=== PATIENT | male | born 1975 | race Caucasian/White ===

== ENCOUNTER 2020-01-15 22:31 | Inpatient (IN) | payer MEDICARE, MEDICAID ==
[~2020-01-15] VITALS: Ht 182.9 cm; Wt 81.5 kg
--- NOTE | ~2020-01-15 | HEMODYNAMI ---
PATIENT:OSWALD ANTHONY MEDICAL RECORD: [id number] : 75 LOCATION:[facility] D.2117 ADMISSION DATE: 01/16/20 Generatedon:01/17/20207:18 Patient name: OSWALD ANTHONY Patient #: [id number] SSN: [id number] : 1975 Date of study: 01/17/2020 Page: Of Hemodynamic Procedure Report Patient Data Patient Demographics Procedure consent was obtained First Name: OSWALD Gender: Male Last Name: RAJ : 1975 Patient #: [id number] Age: 44 year(s) Race: SSN: [id number] Additional ID: [id number] Contact details [address]: [address] [place] [address] State: [place] City: [place] Zip code: [address] Past Medical History Allergies Allergen Reaction Date Comments Reported Other allergy 01/17/2020 MORPHINE, CODEINE Admission Admission Data Admission Date: 01/16/2020 Admission Time: 16:02 Arrival Date: 01/17/2020 Arrival Time: 0:00 Admit Source: Other Insurance Payor: Medicare Room #: D.2117 [facility] #: [id number] Height (in.): 72 BSA: 2.01 (m2) Height (cm.): 182.88 BMI: 23.65 (kg/m2) Weight (lbs.): 174.36 Weight (kg.): 79.09 Lab Results Lab Result Date: 01/17/2020 Lab Result Time: 0:00 Biochemistry Name Units Result Min Max BUN mg/dl 8 --(*---)-- 7 18 CK-MB ng/ml 1 --(-*--)-- 0 3.6 Creatinine mg/dl 1.2 --(---*)-- 0.6 1.3 eGFR ml/min 70.62301 *-(----)-- 90 120 NONAFRICAN Troponin l ng/ml 0.026 --(-*--)-- 0 0.06 CBC Name Units Result Min Max Hematocrit % 36 *-(----)-- 42 54 Hemoglobin g/dl 12.3 *-(----)-- 13.5 17.5 Procedure Procedure Types Cath Procedure Diagnostic Procedure [facility] w/Coronaries Sedation Charges Moderate Sedation up to 15 minutes Procedure Description Procedure Date Procedure Date: 01/17/2020 Procedure Start Time: 6:58 Procedure End Time: 7:14 Procedure Staff Name Function Grover Bryant MD Performing Physician Patsy Durbin RT Monitor Doug Baron RN Nurse Oswald Braden RT Scrub Procedure Data Cath Procedure Fluoroscopy Diagnostic fluoroscopy Total fluoroscopy Time: 2.1 time: 2.1 min min Diagnostic fluoroscopy Total fluoroscopy dose: 543 dose: 543 mGy mGy Contrast Material Contrast Material Type Amount (ml) Isovue 370 52 Entry Location Entry Primary Successful Side Size Upsize Upsize Entry Closure Regalado ccessful Closure Location (Fr) 1 (Fr) 2 (Fr) Remarks Device Remarks Radial Right 6 Fr Mechanical artery Short Compression Estimated blood loss: 5 ml Diagnostic catheters Device Type Used For End Catheter Placement DIAGNOSTIC Jamie 110cm Procedure 5Fr catheter ([id number]) Procedure Complications No complications Procedure Medications Medication Administration Route Dosage 0.9% NaCl I.V. 100 ml/hr Oxygen etCO2 Nasal cannula 2 l/min Heparin Flush Bag added to field 2 bags (1000units/500ml NS) Lidocaine 2% added to field 20 Radial Cocktail added to field 1 syringe (Verapamil 2mg/Nitro 400mcg/Heparin 1500units) Versed I.V. 2 mg Fentanyl I.V. 100 mcg Radial Cocktail I.A. 1 syringe (Verapamil 2mg/Nitro 400mcg/Heparin 1500units) Hemodynamics Rest BSA: 2.01 (m2) HGB: 12.3 (g/dl) O2 Consumption: Estimated: 244.23 (ml/min) O2 Co nsumption indexed: Estimated:121.51 (ml/min/m) Heart Rate: 71 (bpm) Pressure Samples Time Site Value (mmHg) Purpose Heart Use Rate(bpm) 7:03 LV 130/52,60 Snapshot 85 Gradients Valve Time Site Site Mean SEP/DFP Peak To Heart Use 1 2 (mmHg) (sec/min) Peak Rate (mmHg) (bpm) Aortic 7:04 LV AO 80 Snapshots Pre Cath Intra NCS Post Cath Vital Signs Time Heart Resp SPO2 etCO2 NIBP (mmHg) Rhythm Pain Sedation Rate (ipm) (%) (mmHg) Status Level (bpm) 6:47:05 79 20 100 29.8 136/87(110) NSR 0 (11) 10(A) , No pain 6:51:19 80 17 98 34.3 130/80(98) NSR 0 (11) 10(A) , No pain 6:55:33 81 17 97 34.3 121/80(94) NSR 0 (11) 10(A) , No pain 6:59:43 79 15 97 36.5 120/78(92) NSR 0 (11) 10(A) , No pain 7:03:47 82 14 96 35.8 103/64(79) NSR 0 (11) 10(A) , No pain 7:07:55 81 16 96 35 110/69(87) NSR 0 (11) 9(A) , No pain 7:12:04 81 13 96 38 115/72(86) NSR 0 (11) 9(A) , No pain Medications Time Medication Route Dose Verified Delivered Reason Notes Effectiveness by by 6:49:36 0.9% NaCl I.V. 100 Doug Doug Per ml/hr Tod Baron physician RN RN 6:49:46 Oxygen etCO2 2 l/min Doug Doug for low 02 Nasal Lorigan Lorigan sats cannula RN RN 6:49:58 Heparin Flush added 2 bags Doug Doug used for Bag to Lorigan Tod procedure (1000units/500ml [facility] RN RN NS) 6:50:10 Lidocaine 2% added 20ml Doug Doug for local to vial Lorigan Lorigan anesthetic field RN RN 6:50:31 Radial Cocktail added 1 Doug Doug used for (Verapamil to syringe Lorigan Lorigan procedure 2mg/Nitro field RN RN 400mcg/Heparin 1500units) 6:53:50 Versed I.V. 2 mg Doug Doug for sedation Tod Baron RN RN 6:53:58 Fentanyl I.V. 100 mcg Doug Doug for sedation Tod Baron RN RN 7:02:21 Radial Cocktail I.A. 1 Doug Grover for (Verapamil syringe Tod Bryant MD vasodilation 2mg/Nitro RN 400mcg/Heparin 1500units) Procedure Log Time Note 6:29:17 Informed consent obtained and on chart 6:30:12 Lab Result : BUN 8 mg/dl 6:30:12 Lab Result : Creatinine 1.2 mg/dl 6:30:12 Lab Result : CK-MB 1 ng/ml 6:30:12 Lab Result : Troponin l 0.026 ng/ml 6:30:12 Lab Result : eGFR NONAFRICAN 70.82045 ml/min 6:30:12 Lab Result : Hemoglobin 12.3 g/dl 6:30:12 Lab Result : Hematocrit 36 % 6:30:23 Diagnostic Cath Status : Urgent 6:30:39 Arrival Date: 01/17/2020 12:00:00 AM 6:30:40 Admit Source: Other 6:30:48 Insurance Payor : Medicare 6:31:00 Patient Height : 72 inches 6:31:04 Patient Weight : 174.36 lbs 6:31:45 Procedure Status Urgent Heart Cath (IP). 6:31:47 Oswald ELI(R) (CV) sent for patient. Start room use. 6:31:54 Time tracking: Regular hours (M-F 7:00 - 5:00) 6:32:00 Plan of Care:Hemodynamics will remain stable., Cardiac rhythm will remain stable., Comfort level will be maintained., Respiratory function will remain adequate., Patient/ family verbilizes understanding of procedure., Procedure tolerated without complication., Recovers from procedure without complications.. 6:32:43 H&P Date Dictated: 01/16/2020 Within 30 days and on chart.. 6:32:44 Pre-procedure instructions explained to patient. 6:32:45 Pre-op teaching completed and patient verbalized understanding. 6:32:47 Family unavailable. 6:32:48 Patient NPO since Midnight. 6:33:02 Patient allergic to Other allergyMORPHINE, CODEINE 6:33:11 Lab results completed and on chart. 6:33:15 Stress Test: no; N/A ? 6:33:18 Alarms reviewed by R. N. 6:33:18 Sharps counted by scrub and verified by R.N. 6:40:13 Patient received from Med II to CCL 1 Alert and oriented. Tansferred to table in Supine position. 6:40:14 Warm blankets applied, and nav hugger turned on for patient comfort. 6:40:15 Correct patient and procedure confirmed by team. 6:40:15 ECG and BP/O2 sat monitors applied to patient. 6:40:22 Is the patient allergic to Iodine/contrast media? No. 6:43:34 Was the patient premedicated? Yes 6:43:38 Is patient on blood thinner?No 6:43:42 Patient diabetic? Yes. 6:43:44 If diabetic: On Metformin? No 6:43:46 ----Pre-sedation anethsthesia assessment.---- 6:43:50 Previous problem with sedation/anesthesia? No ? 6:43:51 Snore? Yes 6:43:56 Sleep apnea? No 6:43:58 Deviated septum? No 6:43:59 Opens mouth fully? Yes 6:44:00 Sticks out tongue? Yes 6:45:11 Airway obstruction? No ? 6:45:13 Dentures? No ? 6:45:16 Pre procedure: right dorsailis pedis pulse 2+ Normal; easily identifiable; not easily obliterated 6:45:19 Modified Ulisses's test Ulnar < 7 seconds 6:45:21 Patient pain scale 0/10 ?. 6:45:27 IV patent on arrival in left antecubital with 0.9% NaCl at O. 6:45:33 Right Radial & Right Groin area was prepped with chlora-prep and draped in sterile fashion 6:45:42 Use device set Radial Dx or PCI 6:45:43 ACIST Syringe (70726) opened to sterile field. 6:45:44 Medline Cath Pack ([id number]) opened to sterile field. 6:45:44 Bag Decanter (2002) opened to sterile field. 6:45:45 ACIST Hand Control (57338) opened to sterile field. 6:45:46 ACIST Manifold (46963) opened to sterile field. 6:45:47 MBrace Wrist Support ([id number]) opened to sterile field. 6:45:48 NEEDLE Cook 21G 4cm Radial ([id number]) opened to sterile field. 6:45:49 EMERALD Guide Wire (502-715) opened to sterile field. 6:45:50 SHEATH 6FR RAIN ([id number]) opened to sterile field. 6:46:02 Full Disclosure recording started 6:46:03 Vital chart was started 6:46:05 Baseline sample Acquired. 6:46:08 Rhythm: sinus rhythm 6:49:36 0.9% NaCl 100 ml/hr I.V. was administered by Doug Baron RN; Per physician; Verbal order read back and verified. 6:49:46 Oxygen 2 l/min etCO2 Nasal cannula was administered by Doug Baron RN; for low 02 sats; Verbal order read back and verified. 6:49:58 Heparin Flush Bag (1000units/500ml NS) 2 bags added to field was administered by Doug Baron RN; used for procedure; Verbal order read back and verified. 6:50:10 Lidocaine 2% 20ml vial added to field was administered by Doug Baron RN; for local anesthetic; Verbal order read back and verified. 6:50:31 Radial Cocktail (Verapamil 2mg/Nitro 400mcg/Heparin 1500units) 1 syringe added to field was administered by Doug Baron RN; used for procedure; Verbal order read back and verified. 6:52:46 --------ALL STOP TIME OUT------ 6:52:47 Final Timeout: patient, procedure, and site verified with staff and physician. All members of the team are in agreement. 6:52:49 Right Radial & Right Groin site verified by team. 6:52:53 Fire Safety Assessment: A--An alcohol-based skin anteseptic being used preoperatively., C--Open oxygen or nitrous oxide is being used., D--An ESU, laser, or fiber-optic light is being used. 6:52:56 Physical assessment completed. ASA score P 2 - A patient with mild systemic disease as per Grover Bryant MD. 6:52:59 2) 60-89 Mildly reduced kidney function, and other findings (as for stage 1) point to kidney disease. 6:53:03 Maximum allowable contrast dose (3.7 X eGFR X 0.75)194 ml. 6:53:07 Sedation plan: IV Moderate Sedation Medication:Versed, Fentanyl 6:53:50 Versed 2 mg I.V. was administered by Doug Baron RN; for sedation; Verbal order read back and verified. 6:53:58 Fentanyl 100 mcg I.V. was administered by Doug Baron RN; for sedation; Verbal order read back and verified. 6:58:01 Procedure started. 6:58:20 Local anesthetic to right radial artery with Lidocaine 2% by Grover Bryant MD.INITIAL ACCESS ONLY 6:58:34 Zero performed for pressure channel P1 7:00:34 A 6 Fr Short sheath was inserted into the Right Radial artery 7:02:08 A DIAGNOSTIC Jamie 110cm 5Fr catheter ([id number]) was advanced over the wire and used for Procedure. 7:02:21 Radial Cocktail (Verapamil 2mg/Nitro 400mcg/Heparin 1500units) 1 syringe I.A. was administered by Grover Bryant MD; for vasodilation; Verbal order read back and verified. 7:03:24 LV gram done using ANDREWS 7:03:39 LV hemodynamics recorded. 7:03:42 Injector settings: Ml/sec: 5, Volume: 15, 7:04:19 EF : 20 % 7:05:19 LCA angiography performed. 7:05:24 Injector settings: Ml/sec: 3, Volume: 6, 7:07:14 RCA angiography performed. 7:07:17 Injector settings: Ml/sec: 3, Volume: 6, 7:07:23 ACCDominant side:Left 7:11:30 ZEPHYR REGULAR TR BAND ([id number]) opened to sterile field. 7:11:39 Sheath removed intact; hemostasis achieved with Mechanical Compression to the Right Radial artery. 7:11:41 Procedure ended.(Physican Out) 7:11:49 Fluoroscopy time 02.10 minutes. 7:11:54 Fluoroscopy dose: 543 mGy 7:11:54 Flurop Dose total: 543 7:12:02 Dose Area Product 53691 mGy/cm. 7:12:08 Contrast amount:Isovue 370 52ml. 7:12:12 Maximum allowable dose exceeded? No. 7:12:13 Sharps counted by scrub and verified by R.N. 7:12:20 Carlton band inflated with 10cc of air. 7:12:23 Post Procedure Pulses reassessed and unchanged 7:12:25 Post procedure: right dorsailis pedis pulse 2+ Normal; easily identifiable; not easily obliterated. 7:12:29 Post-procedure physical assessment completed. ASA score P 2 - A patient with mild systemic disease as per Grover Bryant MD. 7:12:32 Post procedure rhythm: unchanged. 7:12:35 Estimated blood loss: 5 ml 7:12:36 Post procedure instruction explained to patient.Patient verbalizes understanding. 7:12:37 Patient needs reinforcement of post procedure teaching. 7:12:54 Procedure type changed to Cath procedure, Diagnostic procedure, LHC, [facility] w/Coronaries, Sedation Charges, Moderate Sedation up to 15 minutes 7:13:46 Procedure and supply charges have been captured, reviewed, submitted and are correct. 7:13:51 Procedure Complication : No complications 7:13:53 Vital chart was stopped 7:13:56 [facility] Findings: MVD- MD will discuss options w/ pt 7:13:58 Operative report dictated upon procedure completion. 7:13:58 See physician's report for complete and final results. 7:14:00 Report given to Med II. 7:14:04 Patient transfered to Med II with Bed. 7:14:07 Procedure ended. 7:14:07 Full Disclosure recording stopped 7:14:17 End room use (Document Last) 7:14:29 End room use (Document Last) 7:14:55 End room use (Document Last) Device Usage Item Name Manufacture Quantity Catalog Hospital Part Current Minima l Lot# / Number Charge Number Stock Stock Serial# Code ACIST Acist 1 25530 [id number] [id number] [id number] 20 Syringe Medical (56704) Systems Inc Medline Medline 1 [id number] 649641 46462 037710 5 Cath Pack ([id number]) Bag Microtek 1 955502 70904 526477 5 Decanter Medical Inc. () ACIST Hand Acist 1 78997 504243 258660 605936 5 Control Medical (69718) Systems Inc ACIST Acist 1 82546 091694 366148 219866 5 Manifold Medical (94539) Systems Inc MBrace Advanced 1 [id number] 212135 19108 969854 5 Wrist Vascular Support Dynamics ([id number]) NEEDLE Cook Cook Medical 1 [id number] 149043 052801 218259 5 21G 4cm Radial (D87825) EMERALD Cardinal 1 502-455 038810 794681 589512 5 Guide Wire Health (502455) SHEATH 6FR Cardinal 1 [id number] 122071 9110684 342853 5 [facility] (1770034) DIAGNOSTIC Terumo 1 24-6923 125103 330154 908433 5 Jamie 110cm 5Fr catheter (503960) ZEPHYR Cardinal 1 095824 992642 0546121 331720 5 REGULAR TR Health BAND (367762) Signature Audit [place] Stage Time Signature Unsigned Intra-Procedure 01/17/2020 Patsy Durbin 7:14:29 AM RT(R) Intra-Procedure 01/17/2020 Doug 7:14:55 AM Tod PAGAN Intra-Procedure 01/17/2020 Grover Bryant MD 7:18:14 AM [facility] [address] [place] [address]
[~2020-01-15 22:31] MED LIST: BAYER CHEWABLE81 MG PO; LIPITOR10 MG PO; LOSARTAN HCT PO; PLAVIX75 MG PO
[2020-01-15 23:05] LABS: BASOPHILS 0.3 % (0-2); EOSINOPHILS 3.2 % (0-7); HEMATOCRIT 37.8 % (42.0-54.0); HEMOGLOBIN 13.1 g/dL (13.5-17.5); IMMATURE GRANULOCYTES 0.2 % (0-5); LYMPHOCYTES 41.1 % (15-50); MCH 31.6 pg (26.0-34.0); MCHC 34.7 g/dL (31.0-37.0); MCV 91.1 fL (80.0-100.0); MEAN PLATELET VOLUME 8.9 fL (7.4-10.4); MONOCYTES 8.8 % (2-11); NEUTROPHILS 46.4 % (40-80); PLATELET COUNT 389 10x3/uL (130-400); RBC 4.15 10x6/uL (4.20-6.10); WBC 9.5 10x3/uL (4.8-10.8)
[2020-01-15 23:12] LABS: CALC OSMOLALITY 278 mosm/kg (275-300); CALCIUM 8.9 mg/dL (8.5-10.1); CARBON DIOXIDE 27.6 mmol/L (21.0-32.0); CHLORIDE - SERUM 102 mmol/L (98-107); CREATININE - SERUM 1.1 mg/dL (0.6-1.3); GLUCOSE 256 mg/dL (74-106); POTASSIUM - SERUM 3.7 mmol/L (3.5-5.1); SODIUM 136 mmol/L (136-145); UREA NITROGEN 7 mg/dL (7-18); eGFR NON AFRICAN AMERICAN 77 mL/min (90-120)
[2020-01-15 23:16] LABS: APTT 27.2 SECONDS (22.8-39.4); INR 0.99 (0.85-1.17); PROTIME 13.1 SECONDS (11.6-15.0)
[2020-01-15 23:18] LABS: D-DIMER-QUANTITATIVE 0.34 ug/mLFEU (0.20-0.54)
[2020-01-15 23:30] VITALS: BP 153/93
[2020-01-15 23:30] LABS: ALBUMIN 3.3 g/dL (3.4-5.0); ALKALINE PHOSPHATASE 97 U/L (30-120); ALT (SGPT) 25 U/L (10-68); BILIRUBIN - TOTAL 0.24 mg/dL (0.2-1.3); CKMB 1.1 U/L (0.0-3.6); CREATINE KINASE 79 UL (21-232); LIPASE 110 U/L (73-393); MAGNESIUM - SERUM 1.9 mg/dL (1.8-2.4); PRO BNP 185 pg/mL (0-125); PROTEIN - SERUM 7.7 g/dL (6.4-8.2); TROPONIN-I < 0.017 ng/mL (0.000-0.060)
[2020-01-16 00:07] LABS: MAGNESIUM - SERUM 1.9 mg/dL (1.8-2.4); THYROID STIMULATING HORMONE 1.61 uIU/mL (0.36-3.74)
--- NOTE | 2020-01-16 00:23 | NUR ---
PT ARRIVED VIA W/C FROM ER. NO DISTRESS NOTED.
[2020-01-16 00:49] VITALS: BP 122/76; BMI 23.6
--- NOTE | 2020-01-16 01:13 | NUR ---
ADMISSION ASSESSMENT, HISTORY AND HOME MED COMPLETED. PT DENIED ANY DISCOMFORT. IV TO LFA WITH NS AT 75CC/HR. IV PATENT. SR PER CM HR 71. PPM NOTED. VSS. LUNGS ESSENTIALLY CTA. AN. PALPABLE PERIPHERAL PULSES. NUMEROUS CHIGGER BITES NOTED TO BILAT LOWER LEGS. SPOKE AT LENGHT WITH PT ABOUT HIS A1C. PT STATES HE KNOWS HE IS A DIABETIC BUT DOESN'T TAKE ANY MEDS FOR IT. STATES ONLY TAKES HIS ASA 81MG DAILY. AT BEDSIDE. CALL LIGHT WITHIN REACH. NON SLIP SOCKS PLACED ON FEET. EXPLAINED RATIONALE FOR NPO UNTIL SEEN BY CARDIOLOGY. PT STATED UNDERSTANDING.
--- NOTE | 2020-01-16 03:55 | NUR ---
PT RESTING WITH EYES CLOSED. RESP EVEN AND REGULAR. CALL LIGHT WITHIN REACH.
[2020-01-16 04:30] VITALS: BP 121/74
--- NOTE | 2020-01-16 06:31 | NUR ---
VSS THROUGHOUT NIGHT. SR PER CM. PT DENIED ANY DISCOMFORT. NEEDSMET; WILL CONTINUE TO MONITOR.
[2020-01-16 07:21] LABS: CHOL - HDL RATIO 5.6 ratio (2.3-4.9); CHOLESTEROL, TOTAL 140 mg/dL (0-200); CKMB 1.1 U/L (0.0-3.6); CREATINE KINASE 61 UL (21-232); HDL CHOLESTEROL 25 mg/dL (32-96); LDL CHOLESTEROL 93 mg/dL (0-100); LDL-HDL RATIO 3.7 ratio (1.5-3.5); TRIGLYCERIDE 114 mg/dL (30-200); TROPONIN-I < 0.017 ng/mL (0.000-0.060)
[2020-01-16 09:50] LABS: % SATURATION 28 % (15-55); IRON 69 ug/dl (35-150); TOTAL IRON BIND CAPACITY 242 ug/dl (260-445); UNSAT IRON BIND CAPACITY 173 ug/dl (150-375)
[2020-01-16 10:37] VITALS: BP 113/65
[2020-01-16 11:50] LABS: CREATINE KINASE 52 UL (21-232); TROPONIN-I 0.026 ng/mL (0.000-0.060)
--- NOTE | 2020-01-16 12:21 | NUR ---
I have reviewed this patient and I concur with the Shift Assessment completed by the Licensed Practical Nurse today this shift.
[2020-01-16 13:54] LABS: BASOPHILS 0.3 % (0-2); HEMOGLOBIN 12.3 g/dL (13.5-17.5); IMMATURE GRANULOCYTES 0.2 % (0-5); LYMPHOCYTES 27.5 % (15-50); MCH 31.3 pg (26.0-34.0); MCHC 34.2 g/dL (31.0-37.0); MCV 91.6 fL (80.0-100.0); MEAN PLATELET VOLUME 8.9 fL (7.4-10.4); MONOCYTES 6.2 % (2-11); NEUTROPHILS 63.8 % (40-80); PLATELET COUNT 365 10x3/uL (130-400); RBC 3.93 10x6/uL (4.20-6.10); RDW 13.1 % (11.5-14.5)
[2020-01-16 13:55] LABS: WBC 11.9 10x3/uL (4.8-10.8)
[2020-01-16 14:05] LABS: ANION GAP 10.3 mmol/L (8-16); CALCIUM 8.1 mg/dL (8.5-10.1); CARBON DIOXIDE 25.5 mmol/L (21.0-32.0); CHOL - HDL RATIO 5.5 ratio (2.3-4.9); CREATININE - SERUM 1.2 mg/dL (0.6-1.3); LDL-HDL RATIO 3.6 ratio (1.5-3.5); POTASSIUM - SERUM 3.8 mmol/L (3.5-5.1)
[2020-01-16 14:17] VITALS: BP 104/53
[2020-01-16 14:34] LABS: UDS - AMPHET POSITIVE QUAL (NEGATIVE); UDS - BARB NEGATIVE QUAL (NEGATIVE); UDS - BENZO NEGATIVE QUAL (NEGATIVE); UDS - COCAINE NEGATIVE QUAL (NEGATIVE); UDS - OPIATE NEGATIVE QUAL (NEGATIVE); UDS - PCP NEGATIVE QUAL (NEGATIVE); UDS - THC NEGATIVE QUAL (NEGATIVE)
--- NOTE | 2020-01-16 19:34 | NUR ---
PATIENT IS ALERT AND ORIENTED, RESTING COMFORTABLY IN BED. RESPIRATIONS ARE EVEN AND UNLABORED. NO S/S OF DISTRESS. NO C/O PAIN. CALL LIGHT WITHIN REACH. WILL CPOC.
[2020-01-16 20:00] VITALS: BP 153/76
[2020-01-17 06:18] LABS: BASOPHILS 0.3 % (0-2); HEMATOCRIT 34.2 % (42.0-54.0); HEMOGLOBIN 11.8 g/dL (13.5-17.5); IMMATURE GRANULOCYTES 0.2 % (0-5); LYMPHOCYTES 41.1 % (15-50); MCH 31.5 pg (26.0-34.0); MCHC 34.5 g/dL (31.0-37.0); MCV 91.2 fL (80.0-100.0); MEAN PLATELET VOLUME 9.3 fL (7.4-10.4); MONOCYTES 7.4 % (2-11); PLATELET COUNT 405 10x3/uL (130-400); RBC 3.75 10x6/uL (4.20-6.10); RDW 13.2 % (11.5-14.5)
[2020-01-17 06:34] LABS: CALCIUM 8.7 mg/dL (8.5-10.1); CARBON DIOXIDE 25.4 mmol/L (21.0-32.0); CHLORIDE - SERUM 105 mmol/L (98-107); POTASSIUM - SERUM 3.9 mmol/L (3.5-5.1); SODIUM 140 mmol/L (136-145)
[2020-01-17 06:35] LABS: CALC OSMOLALITY 280 mosm/kg (275-300); CREATININE - SERUM 0.8 mg/dL (0.6-1.3); GLUCOSE 151 mg/dL (74-106); UREA NITROGEN 11 mg/dL (7-18); eGFR NON AFRICAN AMERICAN > 90 mL/min (90-120)
--- NOTE | 2020-01-17 07:36 | NUR ---
BACK FROM DIRECTOR OF SUSTAINABILITY PROGRAMS. VS WNL. RIGHT WRIST STABLE WITH Z-BAND INTACT. WILL MONITOR.
[2020-01-17 09:30] VITALS: BP 103/68
--- NOTE | 2020-01-17 10:00 | NUR ---
Z-BAND DCD WITHOUT BLEEING OR HEMATOMA NOTED.
[2020-01-17 11:52] VITALS: BP 94/50
[2020-01-17 13:32] VITALS: Ht 182.9 cm; Wt 81.5 kg
[2020-01-17 17:47] VITALS: BP 116/69
[2020-01-17 19:48] VITALS: BP 111/72
[2020-01-18 00:12] VITALS: BP 121/68
[2020-01-18 04:55] VITALS: BP 119/77
[2020-01-18 06:13] LABS: BASOPHILS 0.2 % (0-2); HEMATOCRIT 37.5 % (42.0-54.0); HEMOGLOBIN 12.7 g/dL (13.5-17.5); IMMATURE GRANULOCYTES 0.1 % (0-5); LYMPHOCYTES 46.6 % (15-50); MCH 31.4 pg (26.0-34.0); MCHC 33.9 g/dL (31.0-37.0); MCV 92.6 fL (80.0-100.0); MEAN PLATELET VOLUME 9.5 fL (7.4-10.4); MONOCYTES 6.8 % (2-11); NEUTROPHILS 44.3 % (40-80); PLATELET COUNT 425 10x3/uL (130-400); RBC 4.05 10x6/uL (4.20-6.10); RDW 13.3 % (11.5-14.5); WBC 10.3 10x3/uL (4.8-10.8)
[2020-01-18 06:34] LABS: CALCIUM 8.6 mg/dL (8.5-10.1); CARBON DIOXIDE 28.1 mmol/L (21.0-32.0); CHLORIDE - SERUM 104 mmol/L (98-107); CREATININE - SERUM 0.9 mg/dL (0.6-1.3); SODIUM 138 mmol/L (136-145); eGFR NON AFRICAN AMERICAN > 90 mL/min (90-120)
[2020-01-18 06:36] LABS: CALC OSMOLALITY 279 mosm/kg (275-300); GLUCOSE 206 mg/dL (74-106); POTASSIUM - SERUM 4.7 mmol/L (3.5-5.1); UREA NITROGEN 8 mg/dL (7-18)
[2020-01-18 07:57] VITALS: BP 136/84
[2020-01-18 09:53] VITALS: BP 136/84
[2020-01-18] MEDS ORDERED: COREG 3.1253.125 MG PO (10:20)
[2020-01-18] MEDS ORDERED: PLAVIX75 MG PO (10:20)
[2020-01-18] MEDS ORDERED: ENTRESTO 24 MG1 EACH PO (10:20)
[2020-01-18] MEDS ORDERED: GLUCOTROL XL 5 M5 MG PO (10:21)
--- NOTE | 2020-01-18 11:26 | NUR ---
Dc paperwork discussed with pt and spouse. FU appts given at DC. PIC dc'd cath tip intact pressure held. Right wrist pulse palpable, pt advised to monitor right wrist and hand r/t cardiac cath 01/16. Pt and spouse report they understand dc instructions and will keep FU appts. Pt with no distress or issues reported.
== END 2020-01-18 12:29 | disposition home or self-care (01) | DRG 287 ==
LOC: D.ER 22:31 → OBSVTIME 23:48 → D.M2 23:48
PROVIDERS: Emergency Medicine; Internal Medicine Cardiovascular Disease; ADMIT Internal Medicine Nephrology; ATTEND Internal Medicine Nephrology
PROC: B2151ZZ Fluoroscopy of Left Heart using Low Osmolar Contrast (ICD-10-PCS; 2020-01-17)
PROC: 4A023N7 Measurement of Cardiac Sampling and Pressure, Left Heart, Percutaneous Approach (ICD-10-PCS; 2020-01-17)
PROC: B2111ZZ Fluoroscopy of Multiple Coronary Arteries using Low Osmolar Contrast (ICD-10-PCS; principal; 2020-01-17 06:31)
DX: I25.110 Atherosclerotic heart disease of native coronary artery with unstable angina pectoris (principal); I50.20 Unspecified systolic (congestive) heart failure; T82.855A Stenosis of coronary artery stent, initial encounter; I11.0 Hypertensive heart disease with heart failure; Y83.9 Surgical procedure, unspecified as the cause of abnormal reaction of the patient, or of later complication, without mention of misadventure at the time of the procedure; I42.9 Cardiomyopathy, unspecified; F15.90 Other stimulant use, unspecified, uncomplicated; D64.9 Anemia, unspecified; E11.9 Type 2 diabetes mellitus without complications

== ENCOUNTER → 2020-02-06 13:07 | Outpatient (CLI) | payer MEDICARE, MEDICAID ==
[2020-01-17 13:32] VITALS: BMI 23.6
[~2020-02-06 13:07] MED LIST changes: +COREG 3.1253.125 MG PO; +ENTRESTO 24 MG1 EACH PO; +GLUCOTROL XL 5 M5 MG PO
== END | disposition home or self-care (01) ==
LOC: D.HCCECHO 02-01 13:00
PROVIDERS: ATTEND Internal Medicine Cardiovascular Disease
DX: I25.10 Atherosclerotic heart disease of native coronary artery without angina pectoris (principal)

== ENCOUNTER 2020-03-02 | Inpatient (IN) | payer MEDICARE, MEDICAID ==
[~2020-03-02] VITALS: Ht 185.4 cm; Wt 93.0 kg
--- NOTE | ~2020-03-02 | HEMODYNAMI ---
PATIENT:GALLO ANTHONY MEDICAL RECORD: [id number] : 75 LOCATION:[address] ADMISSION DATE: 03/02/20 Generatedon:03/03/20209:50 Patient name: GALLO ANTHONY Patient #: [id number] SSN: [id number] : 1975 Date of study: 03/03/2020 Page: Of Hemodynamic Procedure Report Patient Data Patient Demographics Procedure consent was obtained First Name: GALLO Gender: Male Last Name: RAJ : 1975 Middle Initial: J Age: 44 year(s) Patient #: [id number] Race: SSN: [id number] Additional ID: [id number] Contact details [address]: [address] [place] [address] State: [place] City: [place] Zip code: [address] Past Medical History Allergies Allergen Reaction Date Comments Reported Other allergy 01/17/2020 MORPHINE, CODEINE Other allergy 03/03/2020 morphine, codeine Admission Admission Data Admission Date: 03/02/2020 Admission Time: 13:12 Arrival Date: 03/03/2020 Arrival Time: 0:00 Admit Source: Other Insurance Payor: Medicare Room #: D.2121 [facility] #: [id number] Height (in.): 73 BSA: 2.06 (m2) Height (cm.): 185.42 BMI: 23.8 (kg/m2) Weight (lbs.): 180.36 Weight (kg.): 81.81 Lab Results Lab Result Date: 03/03/2020 Lab Result Time: 0:00 Biochemistry Name Units Result Min Max BUN mg/dl 9 --(*---)-- 7 18 CK-MB ng/ml 1.1 --(-*--)-- 0 3.6 Creatinine mg/dl 1 --(--*-)-- 0.6 1.3 eGFR ml/min 85.80673 -*(----)-- 90 120 NONAFRICAN Troponin l ng/ml 0.017 --(-*--)-- 0 0.06 CBC Name Units Result Min Max Hematocrit % 38.7 *-(----)-- 42 54 Hemoglobin g/dl 13.4 -*(----)-- 13.5 17.5 Procedure Procedure Types Cath Procedure Diagnostic Procedure [facility] w/Coronaries FFR/IVUS FFR Initial Sedation Charges Moderate Sedation up to 45 minutes PCI Procedure Hemochron ACT Test Procedure Description Procedure Date Procedure Date: 03/03/2020 Procedure Start Time: 9:00 Procedure End Time: 9:48 Procedure Staff Name Function Grover Bryant MD Performing Physician Rufina Curtis RN Nurse Patsy Durbin RT Monitor Jacki Deshpande RT Scrub Procedure Data Cath Procedure Fluoroscopy Diagnostic fluoroscopy Total fluoroscopy Time: 6.1 time: 6.1 min min Diagnostic fluoroscopy Total fluoroscopy dose: 752 dose: 752 mGy mGy Contrast Material Contrast Material Type Amount (ml) Isovue 370 106 Entry Location Entry Primary Successful Side Size Upsize Upsize Entry Closure Succes sful Closure Location (Fr) 1 (Fr) 2 (Fr) Remarks Device Remarks Femoral Left 5 Fr Exoseal artery Estimated blood loss: 10 ml Diagnostic catheters Device Type Used For End Catheter Placement MULTIPACK JL 4.0 5Fr Procedure catheter MULTIPACK 3DRC 5Fr Procedure catheter MULTIPACK Pigtail 5 Fr Procedure catheter DIAGNOSTIC IM 5Fr Procedure catheter ([id number]) Procedure Complications No complications Procedure Medications Medication Administration Route Dosage Oxygen etCO2 Nasal cannula 2 l/min Lidocaine 2% added to field 20 Heparin Flush Bag added to field 2 bags (1000units/500ml NS) 0.9% NaCl I.V. 100 ml/hr Versed I.V. 2 mg Fentanyl I.V. 100 mcg Radial Cocktail added to field 1 syringe (Verapamil 2mg/Nitro 400mcg/Heparin 1500units) Versed I.V. 1 mg Fentanyl I.V. 50 mcg Versed I.V. 1 mg Fentanyl I.V. 50 mcg Heparin Bolus I.V. 3000 units Hemodynamics Rest BSA: 2.06 (m2) HGB: 13.4 (g/dl) O2 Consumption: Estimated: 249.3 (ml/min) O2 Con sumption indexed: Estimated:121.02 (ml/min/m) Heart Rate: 70 (bpm) Pressure Samples Time Site Value (mmHg) Purpose Heart Use Rate(bpm) 9:23 LV 115/48,62 Snapshot 70 9:25 AO 113/74(91) Pullback 70 9:25 LV 112/20,33 Pullback 70 Gradients Valve Time Site 1 Site 2 Mean SEP/DFP Peak To Heart Use (mmHg) (sec/min) Peak Rate (mmHg) (bpm) Aortic 9:25 LV AO 0 5 0 70 112/20,33 113/74(91) Calculations Valve P-P Mean Valve Index Valve Source Name Gradient Area Flow (cm2) Aortic 0 0 0 0 Snapshots Pre Cath Intra NCS Post Cath Vital Signs Time Heart Resp SPO2 etCO2 NIBP Rhythm Pain Sedation Rate (ipm) (%) (mmHg) (mmHg) Status Level (bpm) 8:43:42 70 14 98 0 113/71(85) NSR 0 (11) 10(A) , No pain 8:47:50 69 19 98 0 117/69(86) NSR 0 (11) 10(A) , No pain 8:52:00 69 15 99 32.2 109/67(83) NSR 0 (11) 10(A) , No pain 8:56:08 69 18 98 34.4 107/64(76) NSR 0 (11) 10(A) , No pain 9:00:15 69 15 99 38.2 102/62(72) NSR 0 (11) 10(A) , No pain 9:04:21 69 14 99 39 93/61(71) NSR 0 (11) 9(A) , No pain 9:08:25 69 13 99 39 95/54(68) NSR 0 (11) 9(A) , No pain 9:12:29 69 14 98 39 92/58(74) NSR 0 (11) 9(A) , No pain 9:16:33 69 14 98 37.5 89/55(75) NSR 0 (11) 9(A) , No pain 9:20:34 69 13 98 40.5 91/59(73) NSR 0 (11) 9(A) , No pain 9:24:38 69 12 98 40.5 92/58(69) NSR 0 (11) 9(A) , No pain 9:28:40 70 15 98 39 97/62(74) NSR 0 (11) 9(A) , No pain 9:32:45 69 13 99 39.7 86/53(69) NSR 0 (11) 10(A) , No pain 9:36:47 69 13 98 38.9 90/58(78) NSR 0 (11) 10(A) , No pain 9:40:49 69 13 98 38.9 92/57(74) NSR 0 (11) 10(A) , No pain 9:44:48 69 13 98 38.3 103/64(82) NSR 0 (11) 10(A) , No pain 9:48:52 69 15 99 35.9 111/66(83) NSR 0 (11) 10(A) , No pain Medications Time Medication Route Dose Verified Delivered Reason Note s Effectiveness by by 8:42:39 Oxygen etCO2 2 l/min Grover Buffie used for Nasal Manny Curtis RN procedure cannula 8:42:51 Lidocaine 2% added 20ml Grover Grover for local to vial Manny Bryant MD anesthetic field 8:42:59 Heparin Flush added 2 bags Grover Grover used for Bag to Manny Bryant MD procedure (1000units/500ml field NS) 8:43:10 0.9% NaCl I.V. 100 Grover Buffie Per physician ml/hr Manny Curtis RN 8:56:45 Versed I.V. 2 mg Grover Buffie for sedation Manny Curtis RN 8:56:56 Fentanyl I.V. 100 mcg Grover Buffie for sedation Manny Curtis RN 8:57:16 Radial Cocktail added 1 Grover Grover for (Verapamil to syringe Manny Bryant MD vasodilation 2mg/Nitro field 400mcg/Heparin 1500units) 9:00:31 Versed I.V. 1 mg Grover Grover for sedation Manny Bryant MD 9:00:35 Fentanyl I.V. 50 mcg Grover Grover for sedation Manny Bryant MD 9:05:54 Versed I.V. 1 mg Grover Grover for sedation Manny Bryant MD 9:11:11 Fentanyl I.V. 50 mcg Grover Grover for sedation Manny Bryant MD 9:27:06 Heparin Bolus I.V. 3000 Grover Buffie for veri fied units Manny Curtis RN anticoagulation with dr bryant for ifr Procedure Log Time Note 8:18:05 Informed consent obtained and on chart 8:18:12 Arrival Date: 03/03/2020 12:00:00 AM 8:18:12 Admit Source: Other 8:18:38 Insurance Payor : Medicare 8:20:47 Patient Height : 73 inches 8:20:52 Patient Weight : 180.36 lbs 8:22:22 Diagnostic Cath Status : Urgent 8::43 Lab Result : Creatinine 1 mg/dl 8::43 Lab Result : BUN 9 mg/dl 8::43 Lab Result : Hematocrit 38.7 % 8::43 Lab Result : eGFR NONAFRICAN 85.62932 ml/min 8::43 Lab Result : Hemoglobin 13.4 g/dl 8::43 Lab Result : CK-MB 1.1 ng/ml 8::43 Lab Result : Troponin l 0.017 ng/ml 8:28:11 Procedure Status Urgent Heart Cath (IP). 8:28:18 Time tracking: Call back (After hours or weekends) 8:28:24 Plan of Care:Hemodynamics will remain stable., Cardiac rhythm will remain stable., Comfort level will be maintained., Respiratory function will remain adequate., Patient/ family verbilizes understanding of procedure., Procedure tolerated without complication., Recovers from procedure without complications.. 8:28:35 H&P Date Dictated: 03/02/2020 Within 30 days and on chart.. 8:28:36 Pre-procedure instructions explained to patient. 8:28:37 Pre-op teaching completed and patient verbalized understanding. 8:28:52 Patient allergic to Other allergymorphine, codeine 8:29:00 Lab results completed and on chart. 8:29:03 Stress Test: no; N/A ? 8:29:06 Risk of Mortality: 0.8 8:29:09 Risk of blood transfusion: 0.3 8:29:13 Risk of MOON: 0.2 8:29:14 Alarms reviewed by R. N. 8:29:15 Sharps counted by scrub and verified by R.N. 8:29:41 Patient NPO since Midnight. 8:30:18 Rufina Curtis RN sent for patient. Start room use. 8:36:50 Patient received from Pre/Post Procedure Room to CCL 1 Alert and oriented. Tansferred to table in Supine position. 8:37:11 Warm blankets applied, and nav hugger turned on for patient comfort. 8:37:12 Correct patient and procedure confirmed by team. 8:37:12 ECG and BP/O2 sat monitors applied to patient. 8:37:18 Family unavailable. 8:37:20 Is the patient allergic to Iodine/contrast media? No. 8:37:22 Was the patient premedicated? N/A 8:37:23 Is patient on blood thinner?Yes 8:37:26 ACC The patient was administered the following blood thiners within the last 24 hours: ACCPlavix 8:37:29 Patient diabetic? Yes. 8:37:31 If diabetic: On Metformin? No 8:37:36 ----Pre-sedation anethsthesia assessment.---- 8:37:38 Previous problem with sedation/anesthesia? No ? 8:37:40 Snore? Yes 8:37:44 Sleep apnea? No 8:37:46 Deviated septum? No 8:37:47 Opens mouth fully? Yes 8:37:48 Sticks out tongue? Yes 8:37:53 Airway obstruction? No ? 8:37:54 Dentures? No ? 8:38:12 IV patent on arrival in left forearm with 0.9% NaCl at [facility]. 8:38:16 Patient pain scale 0/10 ?. 8:38:24 Pre procedure: right dorsailis pedis pulse 2+ Normal; easily identifiable; not easily obliterated 8:38:37 Right Radial & Right Groin area was prepped with chlora-prep and draped in sterile fashion 8:42:39 Oxygen 2 l/min etCO2 Nasal cannula was administered by Rufina Curtis RN; used for procedure; Verbal order read back and verified. 8:42:44 Vital chart was started 8:42:51 Lidocaine 2% 20ml vial added to field was administered by Grover Bryant MD; for local anesthetic; Verbal order read back and verified. 8:42:59 Heparin Flush Bag (1000units/500ml NS) 2 bags added to field was administered by Grover Bryant MD; used for procedure; Verbal order read back and verified. 8:43:10 0.9% NaCl 100 ml/hr I.V. was administered by Rufina Curtis RN; Per physician; Verbal order read back and verified. 8:54:30 Baseline sample Acquired. 8:54:31 Full Disclosure recording started 8:54:36 Rhythm: sinus rhythm 8:54:43 Modified Ulisses's test Ulnar < 7 seconds 8:54:50 Use device set Radial Dx or PCI 8:54:51 ACIST Syringe (74215) opened to sterile field. 8:54:52 Medline Cath Pack ([id number]) opened to sterile field. 8:54:53 Bag Decanter (2002S) opened to sterile field. 8:54:53 ACIST Hand Control (96221) opened to sterile field. 8:54:54 ACIST Manifold (45516) opened to sterile field. 8:54:55 MBrace Wrist Support ([id number]) opened to sterile field. 8:54:56 NEEDLE Cook 21G 4cm Radial (I25296) opened to sterile field. 8:54:57 EMERALD Guide Wire (464-324) opened to sterile field. 8:54:58 SHEATH 6FR RAIN (6792493) opened to sterile field. 8:56:16 --------ALL STOP TIME OUT------ 8:56:19 Final Timeout: patient, procedure, and site verified with staff and physician. All members of the team are in agreement. 8:56:22 Right Radial & Right Groin site verified by team. 8:56:24 Fire Safety Assessment: A--An alcohol-based skin anteseptic being used preoperatively., C--Open oxygen or nitrous oxide is being used., D--An ESU, laser, or fiber-optic light is being used. 8:56:27 Physical assessment completed. ASA score P 2 - A patient with mild systemic disease as per Grover Bryant MD. 8:56:29 2) 60-89 Mildly reduced kidney function, and other findings (as for stage 1) point to kidney disease. 8:56:32 Maximum allowable contrast dose (3.7 X eGFR X 0.75)239 ml. 8:56:34 Sedation plan: IV Moderate Sedation Medication:Versed, Fentanyl 8:56:45 Versed 2 mg I.V. was administered by Rufina Curtis RN; for sedation; Verbal order read back and verified. 8:56:56 Fentanyl 100 mcg I.V. was administered by Rufina Curtis RN; for sedation; Verbal order read back and verified. 8:57:16 Radial Cocktail (Verapamil 2mg/Nitro 400mcg/Heparin 1500units) 1 syringe added to field was administered by Grover Bryant MD; for vasodilation; Verbal order read back and verified. 9:00:22 Procedure started. 9:00:31 Versed 1 mg I.V. was administered by Grover Bryant MD; for sedation; Verbal order read back and verified. 9:00:35 Fentanyl 50 mcg I.V. was administered by Grover Bryant MD; for sedation; Verbal order read back and verified. 9:00:45 Local anesthetic to right radial artery with Lidocaine 2% by Grover Bryant MD.INITIAL ACCESS ONLY 9:05:54 Versed 1 mg I.V. was administered by Grover Bryant MD; for sedation; Verbal order read back and verified. 9:06:12 UNABLE TO ACESS RADIAL GOING LT GROIN. 9:07:04 Use device set Femoral Dx 9:07:08 DIAGNOSTIC Multipack 5Fr catheter set (LL7026) opened to sterile field. 9:07:11 SHEATH 5FR [place] (DGH007) opened to sterile field. 9:11:00 Local anesthetic to left femerol artery with Lidocaine 2% by Grover Bryant MD.ADDITIONAL ACCESS 9:11:11 Fentanyl 50 mcg I.V. was administered by Grover Bryant MD; for sedation; Verbal order read back and verified. 9:15:24 A 5 Fr sheath was inserted into the Left Femoral artery 9:16:04 A MULTIPACK JL 4.0 5Fr catheter was advanced over the wire and used for Procedure. 9:16:49 LCA angiography performed. 9:16:52 Injector settings: Ml/sec: 3, Volume: 6, 9:19:58 Catheter exchanged over wire. 9:21:03 A MULTIPACK 3DRC 5Fr catheter was advanced over the wire and used for Procedure. 9:21:16 RCA angiography performed. 9:21:19 Injector settings: Ml/sec: 3, Volume: 6, 9:22:13 ACCDominant side:Left 9:22:24 Catheter exchanged over wire. 9:23:01 A MULTIPACK Pigtail 5 Fr catheter was advanced over the wire and used for Procedure. 9:23:29 LV gram done using ANDREWS 9:23:32 Injector settings: Ml/sec: 5, Volume: 15, 9:23:55 LV hemodynamics recorded. 9:24:46 EF : 30 % 9:25:21 Catheter exchanged over wire. 9:25:23 Proceeding to intervention. 9:25:28 Use device set BRYANT PCI 9:26:03 INFLATOR Merit BasixCompak (MQ6306) opened to sterile field. 9:26:04 TUBING High Pressure Extension Tubing (Bryant) ([id number]) opened to sterile field. 9:26:07 BMW 300cm Lamar 2 J wire ([id number]) opened to sterile field. 9:26:21 Blackwell Verrata Plus pressure wire (51052T) opened to sterile field. 9:27:06 Heparin Bolus 3000 units I.V. was administered by Rufina Curtis RN; for anticoagulation; verified with dr bryant for ifr Verbal order read back and verified. 9:29:00 5 Fr JL 4 guide catheter was inserted over the wire 9:31:13 FFR/IFR wire advanced. 9:31:16 Wire advanced across lesion. 9:32:05 LAD lesion measured at .88 with IFR 9:33:47 dLAD lesion measured at .90 with IFR 9:34:55 Wire removed. 9:34:57 Guide catheter removed. 9:37:08 A DIAGNOSTIC IM 5Fr catheter ([id number]) was advanced over the wire and used for Procedure. 9:38:29 Injector settings: Ml/sec: 3, Volume: 6, 9:39:21 Injector settings: Ml/sec: 4, Volume: 8, 9:39:22 INJECT MAMMARY FOR BYPASS. 9:40:31 Catheter removed. 9:40:42 EXOSEAL 5Fr (EX500) opened to sterile field. 9:41:16 Sheath removed intact; hemostasis achieved with Exoseal to the Left Femoral artery. ::22 Fluoroscopy time 06.10 minutes. ::27 Fluoroscopy dose: 752 mGy 9:41:27 Flurop Dose total: 752 9:41:35 Dose Area Product 91191 mGy/cm. 9:41:40 Contrast amount:Isovue 370 106ml. 9:41:43 Maximum allowable dose exceeded? No. 9:41:44 Sharps counted by scrub and verified by R.N. 9:42:14 Procedure ended.(Physican Out) 9:42:50 Post-op/insertion site Left Femoral artery dressed using a 4 x 4 and Tegaderm. 9:42:57 Post left femerol artery:stable, soft, clean and dry 9:44:34 Post Procedure Pulses reassessed and unchanged 9:44:37 Post procedure: right dorsailis pedis pulse 2+ Normal; easily identifiable; not easily obliterated. 9:44:42 Post-procedure physical assessment completed. ASA score P 2 - A patient with mild systemic disease as per Grover Bryant MD. 9:44:45 Post procedure rhythm: unchanged. 9:44:48 Estimated blood loss: 10 ml 9:44:49 Post procedure instruction explained to patient.Patient verbalizes understanding. 9:44:50 Patient needs reinforcement of post procedure teaching. 9:44:55 ACT drawn and resulted at 172 seconds. (normal therapeutic range 180-240 seconds). 9:45:23 Procedure type changed to Cath procedure, Diagnostic procedure, LHC, [facility] w/Coronaries, FFR/IVUS, FFR Initial, Sedation Charges, Moderate Sedation up to 45 minutes, PCI procedure, Hemochron ACT Test 9:46:07 Procedure and supply charges have been captured, reviewed, submitted and are correct. 9:46:10 Procedure Complication : No complications 9:46:28 [facility] Findings: MVD- MD will discuss options w/ pt 9:46:33 Operative report dictated upon procedure completion. 9:46:33 See physician's report for complete and final results. 9:48:35 Vital chart was stopped 9:48:39 Report given to [facility]. 9:48:42 Patient transfered to [facility] with Bed. 9:48:44 Procedure ended. 9:48:44 Full Disclosure recording stopped 9:48:52 ACC-PCI Only Patient was given prescriptions, or instructed by Grover Bryant MD to start/continue the following medications upon discharge: Plavix 9:48:53 End room use (Document Last) 9:49:03 End room use (Document Last) 9:50:14 End room use (Document Last) Device Usage Item Name Manufacture Quantity Catalog Hospital Part Current Mini mal Lot# / Number Charge Number Stock Stock Serial# Code ACIST Acist 1 58096 002495 426959 [id number] 20 Syringe Medical (06945) Systems Inc Medline Medline 1 [id number] 983137 36863 647727 5 Cath Pack ([id number]) Bag Microtek 1 159008 13678 913773 5 Decanter Medical Inc. () ACIST Hand Acist 1 23116 163650 775218 566360 5 Control Medical (22527) Systems Inc ACIST Acist 1 40948 660963 232708 305673 5 Manifold Medical (09963) Systems Inc MBrace Advanced 1 140-0250-00 045710 72089 237921 5 Wrist Vascular Support Dynamics ([id number]) NEEDLE Cook Cook Medical 1 [id number] 938345 328618 517598 5 21G 4cm Radial (U45950) EMERALD Cardinal 1 502-455 038676 093791 821063 5 Guide Wire [facility] (502-455) SHEATH 6FR Cardinal 1 0982086 347706 0391008 363422 5 [facility] (2429955) DIAGNOSTIC Cardinal 1 TR3166 404212 20372 365585 30 MultipViViFi 5Fr catheter set (WP3304) SHEATH 5FR Terumo 1 WUP028 261521 586447 703610 5 [place] (RTI928) MULTIPACK Cardinal 1 415314 5 JL 4.0 5Fr Health catheter MULTIPACK Cardinal 1 562275 5 3DRC 5Fr Health catheter MULTIPACK Cardinal 1 999441 5 Pigtail 5 Health Fr catheter INFLATOR Merit 1 EY9190 587766 632085 295068 15 Merit Medical BasixCompak (IY0957) TUBING High Merit 1 [id number] 325048 11453 220032 10 Pressure Medical Extension Tubing (Bryant) (ZS2383R) BMW 300cm [place] 1 [id number] 574019 016132 950558 5 Lamar 2 Vascular J wire (8535535V) Blackwell Blackwell 1 76418Z 374612 575715023 961560 5 Verrata Plus pressure wire (67606F) DIAGNOSTIC Cardinal 1 [id number] 887633 245180 031125 5 IM 5Fr Health catheter (226438R) EXOSEAL 5Fr Cardinal 1 EX500 035110 271198 350626 10 (EX500) Health Signature Audit [place] Stage Time Signature Unsigned Intra-Procedure 03/03/2020 Patsy Durbin 9:49:03 AM RT(R) Intra-Procedure 03/03/2020 Rufina Curtis RN 9:50:14 AM Intra-Procedure 03/03/2020 Grover Bryant MD 9:50:34 AM [place] [id number] [place] [id number]
[2020-03-02 00:29] LABS: BILIRUBIN NEGATIVE (NEGATIVE); GLUCOSE 100 mg/dL (NEGATIVE); KETONE NEGATIVE (NEGATIVE); NITRITE NEGATIVE (NEGATIVE); SPECIFIC GRAVITY 1.005 (1.005-1.020); UROBILINOGEN NORMAL (NORMAL)
[2020-03-02 00:36] LABS: UDS - AMPHET NEGATIVE QUAL (NEGATIVE); UDS - BARB NEGATIVE QUAL (NEGATIVE); UDS - BENZO NEGATIVE QUAL (NEGATIVE); UDS - COCAINE NEGATIVE QUAL (NEGATIVE); UDS - OPIATE POSITIVE QUAL (NEGATIVE); UDS - PCP NEGATIVE QUAL (NEGATIVE); UDS - THC NEGATIVE QUAL (NEGATIVE)
[2020-03-02 00:46] LABS: BASOPHILS 0.3 % (0-2); EOSINOPHILS 2.8 % (0-7); HEMATOCRIT 37.8 % (42.0-54.0); HEMOGLOBIN 13.1 g/dL (13.5-17.5); IMMATURE GRANULOCYTES 0.2 % (0-5); LYMPHOCYTES 44.5 % (15-50); MCH 31.6 pg (26.0-34.0); MCHC 34.7 g/dL (31.0-37.0); MCV 91.1 fL (80.0-100.0); MEAN PLATELET VOLUME 8.7 fL (7.4-10.4); NEUTROPHILS 45.2 % (40-80); PLATELET COUNT 414 10x3/uL (130-400); RBC 4.15 10x6/uL (4.20-6.10); RDW 12.8 % (11.5-14.5); WBC 10.9 10x3/uL (4.8-10.8)
[2020-03-02 00:53] LABS: CALC OSMOLALITY 271 mosm/kg (275-300); CALCIUM 8.7 mg/dL (8.5-10.1); CARBON DIOXIDE 25.8 mmol/L (21.0-32.0); CHLORIDE - SERUM 101 mmol/L (98-107); CREATININE - SERUM 0.9 mg/dL (0.6-1.3); GLUCOSE 174 mg/dL (74-106); POTASSIUM - SERUM 3.7 mmol/L (3.5-5.1); SODIUM 135 mmol/L (136-145); UREA NITROGEN 8 mg/dL (7-18); eGFR NON AFRICAN AMERICAN > 90 mL/min (90-120)
[2020-03-02 00:55] LABS: APTT 27.9 SECONDS (22.8-39.4); PROTIME 14.1 SECONDS (11.6-15.0)
[2020-03-02 01:04] LABS: ALBUMIN 3.4 g/dL (3.4-5.0); ALKALINE PHOSPHATASE 82 U/L (30-120); ALT (SGPT) 19 U/L (10-68); BILIRUBIN - TOTAL 0.21 mg/dL (0.2-1.3); C-REACTIVE PROTEIN 0.8 mg/dL (0.0-0.9); CREATINE KINASE 88 UL (21-232); LIPASE 96 U/L (73-393); MAGNESIUM - SERUM 1.9 mg/dL (1.8-2.4); PRO BNP 110 pg/mL (0-125); PROTEIN - SERUM 7.7 g/dL (6.4-8.2); TROPONIN-I < 0.017 ng/mL (0.000-0.060)
[2020-03-02 01:06] LABS: D-DIMER-QUANTITATIVE < 0.27 ug/mLFEU (0.20-0.54)
[2020-03-02 03:26] VITALS: BP 108/65
[2020-03-02 06:27] VITALS: BP 94/57
--- NOTE | 2020-03-02 07:31 | NUR ---
INSULIN NOT GIVEN AT THIS TIME. FSBS 130
--- NOTE | 2020-03-02 07:31 | NUR ---
PT LAYING IN BED. NO DISTRESS NOTED. COLOR WNL FOR RACE. RESPIRATIONS ARE EVEN AND UNLABORED. FAMILY AT BEDSIDE. WILL CONTINUE TO MONITOR.
[2020-03-02 07:54] VITALS: BP 114/67
--- NOTE | 2020-03-02 09:46 | NUR ---
PT C/O PAIN TO LEFT AC FROM IV PLACEMENT. D/C IV TO LEFT AC, RESITED TO RIGHT FOREARM.
--- NOTE | 2020-03-02 09:55 | NUR ---
NARCISA WITH CARDIOLOGY NOTIFIED OF CONSULT
[2020-03-02 10:01] VITALS: BP 102/59
[2020-03-02 11:43] LABS: CKMB 1.1 U/L (0.0-3.6); CREATINE KINASE 62 UL (21-232); TROPONIN-I < 0.017 ng/mL (0.000-0.060)
[2020-03-02 14:08] VITALS: BP 98/61; BMI 23.8
[2020-03-02 15:33] LABS: PLT FUNCT.(P2Y12) PLAVIX 171 PRU (194-418)
[2020-03-02 15:40] LABS: HEMATOCRIT 38.7 % (42.0-54.0); HEMOGLOBIN 13.4 g/dL (13.5-17.5); MCH 31.8 pg (26.0-34.0); MCHC 34.6 g/dL (31.0-37.0); MCV 91.9 fL (80.0-100.0); MEAN PLATELET VOLUME 8.4 fL (7.4-10.4); NEUTROPHILS 50.5 % (40-80); PLATELET COUNT 448 10x3/uL (130-400); RBC 4.21 10x6/uL (4.20-6.10); RDW 13.2 % (11.5-14.5)
[2020-03-02 15:51] LABS: ALT (SGPT) 20 U/L (10-68); CALC OSMOLALITY 275 mosm/kg (275-300); CALCIUM 8.3 mg/dL (8.5-10.1); CARBON DIOXIDE 28.3 mmol/L (21.0-32.0); CHLORIDE - SERUM 101 mmol/L (98-107); CHOL - HDL RATIO 6.6 ratio (2.3-4.9); CHOLESTEROL, TOTAL 145 mg/dL (0-200); HDL CHOLESTEROL 22 mg/dL (32-96); LDL CHOLESTEROL 95 mg/dL (0-100); LDL-HDL RATIO 4.3 ratio (1.5-3.5); POTASSIUM - SERUM 3.7 mmol/L (3.5-5.1); SODIUM 133 mmol/L (136-145); TRIGLYCERIDE 144 mg/dL (30-200); UREA NITROGEN 9 mg/dL (7-18); eGFR NON AFRICAN AMERICAN 86 mL/min (90-120)
[2020-03-02 16:04] LABS: GLUCOSE 303 mg/dL (74-106)
--- NOTE | 2020-03-02 19:42 | NUR ---
INITIAL ROUNDS COMPLETED AT 1915 HRS. PT DENIED ANY DISOCMFORT. ASSESSMENT COMPLETED AT 1925 HRS. SR PER CM HR 71. O2 2LNC. ALERT AND ORIENTED TO PERSON, PLACE AND TIME. AN. IV TO RFA SL. SR UP X1, CALL LIGHT WITHIN REACH.
--- NOTE | 2020-03-02 21:52 | NUR ---
PT REQUESTING SLEEP MEDICINE. [facility] PAGED.
--- NOTE | 2020-03-02 22:16 | NUR ---
[facility] REPAGED.
--- NOTE | 2020-03-02 22:23 | NUR ---
Crystal RASCON APRN RETURNS CALL. INFORMED OF PT'S REQUEST FOR SOMETHING TO HELP HIM SLEEP. NEW ORDERS RECEIVED AND NOTED.
--- NOTE | 2020-03-02 22:49 | NUR ---
MELATONIN 9MG PO GIVEN FOR C/O INSOMNIA.
--- NOTE | 2020-03-03 01:00 | NUR ---
PT RESTING WITH EYES CLOSED. RESP EVEN AND REGULAR. CALL LIGHT WITHIN REACH.
--- NOTE | 2020-03-03 02:23 | NUR ---
PT RESTING WITH EYES CLOSED. RESP EVEN AND REGULAR. CALL LIGHT WITHIN REACH.
[2020-03-03 04:00] VITALS: BP 110/71
--- NOTE | 2020-03-03 04:29 | NUR ---
PT RESTING WITH EYES CLOSED. RESP EVEN AND REGULAR. CALL LIGHT WITHIN REACH.
--- NOTE | 2020-03-03 05:36 | NUR ---
IV WRAPPED FOR SHOWER. PT ANJEL EXPLAINED TO PT. PT STATES THAT THE CATH WILL GO THROUGH HIS WRIST HE WILL REFUSE TO GO THROUGH HIS GROIN. REFUSED GROIN PREP FOR LHC.
--- NOTE | 2020-03-03 06:38 | NUR ---
VSS THROUGHOUT NIHGT. SR PER CM. PT RESTED WELL DURING SHIFT. NEEDS MET; WILL CONTINUE TO MONITOR.
[2020-03-03 09:16] VITALS: BP 114/63
--- NOTE | 2020-03-03 10:28 | NUR ---
RECEIVED PT FROM SENIOR NET APPLICATION DEVELOPER. LEFT FEMORAL SITE IS C/D/I WITH NO S/S OF HEMATOMA PRESENT. VSS AND WNL. NO S/S OF DISTRESS NOTED. NS INFUSING @100ML/HR VIA L.FOR PIV. WILL CTM.
[2020-03-03 12:24] VITALS: BMI 23.7
[2020-03-03 13:28] LABS: HEMATOCRIT 37.6 % (42.0-54.0); HEMOGLOBIN 12.9 g/dL (13.5-17.5); LYMPHOCYTES 47.6 % (15-50); MCH 31.7 pg (26.0-34.0); MCHC 34.3 g/dL (31.0-37.0); MCV 92.4 fL (80.0-100.0); MEAN PLATELET VOLUME 8.4 fL (7.4-10.4); NEUTROPHILS 45.2 % (40-80); PLATELET COUNT 409 10x3/uL (130-400); RBC 4.07 10x6/uL (4.20-6.10); RDW 12.9 % (11.5-14.5); WBC 6.9 10x3/uL (4.8-10.8)
[2020-03-03 13:59] LABS: ALBUMIN 3.1 g/dL (3.4-5.0); ALKALINE PHOSPHATASE 80 U/L (30-120); ALT (SGPT) 22 U/L (10-68); BILIRUBIN - TOTAL 0.24 mg/dL (0.2-1.3); CALC OSMOLALITY 274 mosm/kg (275-300); CALCIUM 8.3 mg/dL (8.5-10.1); CARBON DIOXIDE 26.5 mmol/L (21.0-32.0); CHLORIDE - SERUM 104 mmol/L (98-107); CREATININE - SERUM 0.8 mg/dL (0.6-1.3); GLUCOSE 180 mg/dL (74-106); POTASSIUM - SERUM 4.1 mmol/L (3.5-5.1); PROTEIN - SERUM 6.9 g/dL (6.4-8.2); SODIUM 136 mmol/L (136-145); UREA NITROGEN 8 mg/dL (7-18); eGFR NON AFRICAN AMERICAN > 90 mL/min (90-120)
[2020-03-03 20:28] VITALS: BP 99/66
--- NOTE | 2020-03-04 00:04 | NUR ---
INITIAL ROUNDS COMPLETED AT 1915 HRS. PT DENIED ANY DISCOMFORT. ASSESSMENT COMPLETED AT 2009 HRS. VSS. ALERT AND ORIENTED TO PERSON, PLACE AND TIME. AN. IV TORFA SL. LUNGS CTA. ABD SOFT WITH ACTIVE BS NOIED. R GROIN CDI WITHOUT SWELLLING, BRUISING OR BLEEDING. PALPABLE PERIPHERAL PULSES. PM FSBS 220. 4 UNITS HUMALOG GIVEN SUB-Q TO ARM. PM MEDS GIVEN. PT CURRENTLY RESTING WITH EYES CLOSED. RESP EVEN AND REGULAR. SR UP X2, CALL LIGHT WITHIN REACH.
--- NOTE | 2020-03-04 02:14 | NUR ---
PT RESTING WITH EYES CLOSED. RESP EVEN AND REGULAR. CALL LIGHT WITHIN REACH.
--- NOTE | 2020-03-04 04:15 | NUR ---
PT RESTING WITH EYES CLOSED. RESP EVEN AND REGULAR. CALL LIGHT WITHIN REACH.
[2020-03-04 05:00] VITALS: BP 122/77
[2020-03-04 05:31] LABS: HEMATOCRIT 36.6 % (42.0-54.0); HEMOGLOBIN 12.5 g/dL (13.5-17.5); LYMPHOCYTES 47.1 % (15-50); MCH 31.6 pg (26.0-34.0); MCHC 34.2 g/dL (31.0-37.0); MCV 92.7 fL (80.0-100.0); MEAN PLATELET VOLUME 8.5 fL (7.4-10.4); NEUTROPHILS 44.5 % (40-80); PLATELET COUNT 429 10x3/uL (130-400); RBC 3.95 10x6/uL (4.20-6.10); RDW 13.1 % (11.5-14.5)
[2020-03-04 05:32] LABS: WBC 9.6 10x3/uL (4.8-10.8)
[2020-03-04 05:54] LABS: ALBUMIN 3.1 g/dL (3.4-5.0); ALKALINE PHOSPHATASE 75 U/L (30-120); ALT (SGPT) 20 U/L (10-68); BILIRUBIN - TOTAL 0.19 mg/dL (0.2-1.3); CALC OSMOLALITY 276 mosm/kg (275-300); CALCIUM 8.4 mg/dL (8.5-10.1); CARBON DIOXIDE 26.9 mmol/L (21.0-32.0); CHLORIDE - SERUM 103 mmol/L (98-107); CREATININE - SERUM 0.9 mg/dL (0.6-1.3); GLUCOSE 186 mg/dL (74-106); POTASSIUM - SERUM 3.8 mmol/L (3.5-5.1); PROTEIN - SERUM 7.1 g/dL (6.4-8.2); SODIUM 137 mmol/L (136-145); UREA NITROGEN 7 mg/dL (7-18); eGFR NON AFRICAN AMERICAN > 90 mL/min (90-120)
--- NOTE | 2020-03-04 06:40 | NUR ---
VSS THROUGHOUT NIGHT. SR PER CM. PT RESTED WELL DURING SHIFT. NEEDS MET; WILL CONTINUE TO MONITOR.
--- NOTE | 2020-03-04 07:20 | NUR ---
RECIEVE REPORT. RESTING IN BED WITH EYES CLOSED. RESPIRTATIONS NONLABORED. NO SIGNS OF DISTRESS. FAMILY RESTING ON FLOOR. CONTINUE PLAN OF CARE AND SAFETY PRECAUTIONS.
[2020-03-04 18:06] VITALS: BP 141/75
[2020-03-04 21:30] VITALS: BP 119/71
--- NOTE | 2020-03-04 23:30 | NUR ---
INITIAL ROUNDS COMPLETED AT 191 HRS. PT DENIED ANY DISCOMFORT. ASSESSMENT COMPLETED AT 1954 HRS. VSS. SR PER CM HR 73. ALERT AND ORIENTED TO PERSON, PLACE AND TIME. AN. IV TO LFA SL. PPM NOTED. LUNGS ESSENTIALLY CTA. L GROIN CLEAN, DRY AND INTACT. AN. PALPABLE PERIPHERAL PULSES. PT SHOWERED AT 2030 HRS. PM FSBS 221. 4 UNITS HUMALOG GIVEN SUB-Q TO ABD. PM MEDS GIVEN. SNACK SERVED. PT CURRENTLY WATCHING TV. SR UP X1, CALL LIGHT WITHIN REACH.
--- NOTE | 2020-03-05 03:24 | NUR ---
PT RESTING WITH EYES CLOSED. RESP EVEN AND REGULAR. CALL LIGHT WITHIN REACH.
[2020-03-05 04:29] VITALS: BP 96/58
--- NOTE | 2020-03-05 06:02 | NUR ---
VSS THROUGHOUT NIGHT. SR PER CM. PT DENIED ANY DISCOMFORT. NEEDS MET; WILL CONTINUE TO MONITOR.
--- NOTE | 2020-03-05 07:20 | NUR ---
RECIEVE REPORT. ALERT AND ORIENTED X4. LAYING IN BED. SPOUSE RESTING IN FLOOR. DENIES PAIN OR SOB. SINUS RYTHM ON TELEMETRY. CONTINUE PLAN OF CARE AND SAFETY PRECAUTIONS.
[2020-03-05 09:00] VITALS: BP 89/50
[2020-03-05 10:16] LABS: ALBUMIN 3.3 g/dL (3.4-5.0); ALKALINE PHOSPHATASE 82 U/L (30-120); ALT (SGPT) 20 U/L (10-68); BILIRUBIN - TOTAL 0.13 mg/dL (0.2-1.3); CALC OSMOLALITY 279 mosm/kg (275-300); CALCIUM 8.6 mg/dL (8.5-10.1); CARBON DIOXIDE 28.3 mmol/L (21.0-32.0); CHLORIDE - SERUM 104 mmol/L (98-107); CREATININE - SERUM 0.8 mg/dL (0.6-1.3); GLUCOSE 205 mg/dL (74-106); SODIUM 138 mmol/L (136-145); UREA NITROGEN 8 mg/dL (7-18); eGFR NON AFRICAN AMERICAN > 90 mL/min (90-120)
[2020-03-05 10:51] VITALS: Ht 185.4 cm; Wt 93.0 kg
[2020-03-05 11:21] LABS: HEMATOCRIT 37.2 % (42.0-54.0); HEMOGLOBIN 12.8 g/dL (13.5-17.5); LYMPHOCYTES 38.3 % (15-50); MCH 31.9 pg (26.0-34.0); MCHC 34.4 g/dL (31.0-37.0); MCV 92.8 fL (80.0-100.0); MEAN PLATELET VOLUME 8.9 fL (7.4-10.4); NEUTROPHILS 51.4 % (40-80); PLATELET COUNT 429 10x3/uL (130-400); RBC 4.01 10x6/uL (4.20-6.10); WBC 10.2 10x3/uL (4.8-10.8)
[2020-03-05 14:09] LABS: APTT 28.5 SECONDS (22.8-39.4); INR 1.03 (0.85-1.17); PHOSPHOROUS 3.1 mg/dL (2.5-4.9); PROTIME 13.4 SECONDS (11.6-15.0); T4 THYROXIN - FREE 0.87 ng/dL (0.76-1.46); URIC ACID 4.2 mg/dL (2.6-7.2)
[2020-03-05 15:00] VITALS: BP 145/75
--- NOTE | 2020-03-05 20:00 | NUR ---
REPORT RECIEVED AND INITIAL ROUNDS COMPLETED. PT RESTING IN BED AND WATCHING TV. AT BEDSIDE. ALERT/ORIENTED. SOMBER MOOD IN ROOM DUE TO PENDING OPEN HEART SURGERY ON THURSDAY. WILL PROVIDE EDUCATION/EMOTIONAL SUPPORT AND TEACHING INDICATED. CPOC.
[2020-03-05 21:21] VITALS: BP 120/68
[2020-03-06] VITALS (8 sets, daily range): BP systolic 100–128; BP diastolic 50–76
--- NOTE | 2020-03-06 06:00 | NUR ---
NO CHANGE FROM INITIAL SHIFT ASSESSMENT. PT HAS RESTED IN ROOM FOR THE NIGHT WITH NO DISTRESS. SR PER TELEMETRY. CPOC.
[2020-03-06 06:35] LABS: ALBUMIN 3.2 g/dL (3.4-5.0); ALKALINE PHOSPHATASE 81 U/L (30-120); ALT (SGPT) 20 U/L (10-68); BILIRUBIN - TOTAL 0.19 mg/dL (0.2-1.3); CALC OSMOLALITY 275 mosm/kg (275-300); CALCIUM 8.5 mg/dL (8.5-10.1); CARBON DIOXIDE 31.7 mmol/L (21.0-32.0); CHLORIDE - SERUM 103 mmol/L (98-107); GLUCOSE 178 mg/dL (74-106); POTASSIUM - SERUM 4.2 mmol/L (3.5-5.1); SODIUM 137 mmol/L (136-145); UREA NITROGEN 6 mg/dL (7-18); eGFR NON AFRICAN AMERICAN 86 mL/min (90-120)
[2020-03-06 07:47] LABS: HEMATOCRIT 37.2 % (42.0-54.0); HEMOGLOBIN 12.4 g/dL (13.5-17.5); LYMPHOCYTES 46.8 % (15-50); MCH 31.2 pg (26.0-34.0); MCHC 33.3 g/dL (31.0-37.0); MCV 93.5 fL (80.0-100.0); MEAN PLATELET VOLUME 9.2 fL (7.4-10.4); PLATELET COUNT 429 10x3/uL (130-400); RBC 3.98 10x6/uL (4.20-6.10); RDW 13.2 % (11.5-14.5)
[2020-03-06 08:12] LABS: PLT FUNCT.(P2Y12) PLAVIX 166 PRU (194-418)
--- NOTE | 2020-03-06 13:14 | NUR ---
Nutrition Follow-up: Pt reports eating well. Observed ~75% of breakfast eaten this AM. Unsure of last BM. Noted plans for CABG tomorrow. Diet: Diabetic PO intake: 75-100% Wt: 186.2# (03/06); 180# (03/02 - stated) Labs noted: Glu 178, Alb 3.2 Meds noted: Protonix, Humalog, electrolyte protocol -Rec ADAT as medically feasible following surgery tomorrow. -Monitor wt. -RD following.
--- NOTE | 2020-03-06 14:03 | MORECARE ---
CASE MANAGEMENT DISCHARGE SUMMARY PATIENT: GALLO ANTHONY UNIT: [id number] ADM DATE: 03/03/20 AGE: 44 : 75 SEX: M ROOM/BED: D.1356 AUTHOR: LETICIADOC PHYSICIAN: REFERRING PHYSICIAN: TAMELA HARRISON MD DATE OF SERVICE: 03/06/20 Discharge Plan Patient Name: GALLO ANTHONY Facility: [facility]:[place] : 1975 Planned Disposition: Home with Home Health Anticipated Discharge Date: Discharge Date: Expected LOS: Initial Reviewer: [email or web address] Initial Review Date: 03/02/2020 Generated: 03/06/20 3:02 pm Comments DCP- Discharge Planning Updated by [email or web address]: Ashlyn Kline on 03/06/20 1:[address] Patient Name: GALLO ANTHONY Admission Status: ER Accout number: [id number] Admission Date: 03-03-2020 : 1975 Admission Diagnosis: Attending: KALPANA Current LOS: 3 Anticipated DC Date: Planned Disposition: Home with Home Health Primary Insurance: [employer] ADV Discharge Planning Comments: CM met with patient to complete initial dc planning assessment. CM educated patient on the CM role and verbal consent given by patient to complete assessment. CM verified patient's address, phone number, and emergency contact phone numbers. Patient lives at home with his family. His Cristal ([phone]) is at bedside. At discharge patient plans to return home and feels this is a safe discharge. 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 Patient states he will agree to [facility] if needed. ROJELIO signed. Patient denies other known discharge needs at this time. Transportation provider at discharge will be Cristal. CM will continue to follow and will assist as needed with dc plans/needs. Health Safety And Environment Manager: Ashlyn Kline DCPIA - Discharge Planning Initial Assessment Updated by [email or web address]: Ashlyn Kline on 03/06/20 1:57 pm * Is the patient Alert and Oriented? Yes * How many steps to enter\exit or inside your home? 0/0 * PCP NONE * Pharmacy [facility] * Preadmission Environment Home with Family * ADLs Independent * Equipment None * List name and contact numbers for known caregivers / representatives who currently or will assist patient after discharge: CRISTAL [phone] * Verbal permission to speak to the caregivers and representatives has been obtained from the patient. Yes * Community resources currently utilized None * Additional services required to return to the preadmission environment? Yes * Can the patient safely return to the preadmission environment? Yes * Has this patient been hospitalized within the prior 30 days at any hospital? No Coverage Notice Reviewer: [id number] Thierry Kline Notice Issued Date-Time: 03/02/2020 16:00 Notice Type: Medicare Outpatient Observation Notice Notice Delivered To: Family Member Relationship to Patient: Spouse Learning Officer Name: estela Delivery Method: HAND - Hand Delivered Pilar Days: Prior Verbal Notification: Recipient Understood Notice: Yes Recipient Signature: Yes Med Rec Note Co-signed by Attending: Coverage Notice Comment: lerma delivered. signed by estela. Patient Name: GALLO ANTHONY Page [phone] at 1403 All edits/amendments must be made on the electronic document DICTATION DATE: 03/06/20 140 APPLICATION COUNSELOR: MARISOL 03/06/20 140 RPT#: [id number] DC DATE: STATUS: ADM IN [facility] [address] [place] [address] END OF REPORT
--- NOTE | 2020-03-06 19:30 | NUR ---
PT RECIEVED FROM MED FLOOR VIA W/C, AMBULATED TO BED, A/OX4, LUNGS CLEAR, LEFT FA PIV INTACT AND SL, VITALS STABLE
--- NOTE | 2020-03-06 21:00 | NUR ---
PT CLIPPED WITH ASSIST FROM SPOUSE, UP AD CURTIS WITH NO C/O
[2020-03-06 22:13] LABS: BILIRUBIN NEGATIVE (NEGATIVE); GLUCOSE 50 mg/dL (NEGATIVE); KETONE NEGATIVE (NEGATIVE); NITRITE NEGATIVE (NEGATIVE); UROBILINOGEN NORMAL (NORMAL)
[2020-03-06 22:14] LABS: WHITE CELLS - URINE 0-5 /hpf (NEGATIVE)
[2020-03-07] VITALS (48 sets, daily range): BP systolic 86–137; BP diastolic 46–85
--- NOTE | 2020-03-07 03:30 | NUR ---
BLOOD SUGAR 138.
--- NOTE | 2020-03-07 04:00 | NUR ---
CARE TAKEN OVER BY THIS NURSE. AT THIS TIME PT IS RESTING QUIETLY IN ROOM WITH HIS EYES CLOSED. HE HAS NO C/O OR NEEDS AT THIS TIME.
[2020-03-07 04:46] LABS: HEMATOCRIT 35.9 % (42.0-54.0); HEMOGLOBIN 12.3 g/dL (13.5-17.5); LYMPHOCYTES 50.9 % (15-50); MCH 31.6 pg (26.0-34.0); MCHC 34.3 g/dL (31.0-37.0); MCV 92.3 fL (80.0-100.0); MEAN PLATELET VOLUME 8.5 fL (7.4-10.4); NEUTROPHILS 42.6 % (40-80); PLATELET COUNT 427 10x3/uL (130-400); RBC 3.89 10x6/uL (4.20-6.10); RDW 12.9 % (11.5-14.5); WBC 10.3 10x3/uL (4.8-10.8)
[2020-03-07 04:56] LABS: ALBUMIN 3.1 g/dL (3.4-5.0); ALKALINE PHOSPHATASE 75 U/L (30-120); ALT (SGPT) 19 U/L (10-68); BILIRUBIN - TOTAL 0.31 mg/dL (0.2-1.3); CALCIUM 8.3 mg/dL (8.5-10.1); CARBON DIOXIDE 29.9 mmol/L (21.0-32.0); CHLORIDE - SERUM 103 mmol/L (98-107); CREATININE - SERUM 0.8 mg/dL (0.6-1.3); POTASSIUM - SERUM 3.6 mmol/L (3.5-5.1); PROTEIN - SERUM 7.4 g/dL (6.4-8.2); SODIUM 137 mmol/L (136-145); eGFR NON AFRICAN AMERICAN > 90 mL/min (90-120)
[2020-03-07 05:09] LABS: CALC OSMOLALITY 273 mosm/kg (275-300); GLUCOSE 130 mg/dL (74-106); UREA NITROGEN 8 mg/dL (7-18)
--- NOTE | 2020-03-07 13:30 | NUR ---
PT ARRIVED IN THE UNIT AND HOOKED TO ICU MONITORS. PT SEDATED AND ON THE VENT. AC 14 550 40% PEEP 5. 8.0 ETT 23 AT THE LIP. RIGHT IJ CVL NOTED. SEE IV FLOW SEE FOR GTTS. PPM NOTED TO RIGHT UPPER CHEST. NSR WITH OCCASIONAL PACED BEAT NOTED ON THE MONITOR. MIDSTERNAL DRESSING C/D/I. SUBSTERNAL DRESSING C/D/I WITH CT LABLED A AND P. A LEFT SUBSTERNAL TIP DRAIN NOTED COMPRESSED. ALL CT HAVE BLOODY DRAIANGE NOTED. RIGHT RADIAL JYOTHI NOTED WITH A GOOD WAVE FORM. WRIST PROTECTOR IN PLACE. CAP REFILL <3 SECONDS. LEFT WRIST DRESSING C/D/I. OR TEAM STATED THEY HARVEST LEFT RADIAL ARTERY. FC NOTED WITH CLEAR, YELLOW URINE. RLE HARVEST SITE C/D/I. COBAN FROM ANKEL TO THIGH NOTED. VSS AT THIS TIME. CALL LIGHT IN REACH. WILL CONT 1:1 CARE.
--- NOTE | 2020-03-07 14:00 | NUR ---
[address] ALICEA.
--- NOTE | 2020-03-07 15:51 | NUR ---
DR ALICEA IN THE UNIT. HE WAS MADE AWARE THAT THE PT IS STILL SLIGHTLY HYPOTENSIVE. TURN OFF CARDIZEM PER DR ALICEA.
--- NOTE | 2020-03-07 16:45 | NUR ---
ABG RESULTS READ TO DR ALICEA. OK TO EXTUBATE. RT NOTIFIED AND EXTUBATED TO 2L VIA NC. O2 SAT 99%. PT PULLS ABOUT 500 ON HIS IS. INSTRUCTED TO USE 10X'S/H. TAUGHT PT TO SLINT CHEST WITH HEART PILLOW AND TO COUGH. WEAK COUGH NOTED.
--- NOTE | 2020-03-07 17:08 | NUR ---
PT CT NOTIFIED TO DR ALICEA. ORDERS FOR STAT CBC, PT/INR AND PTT. TRANSFUSE 1 UNIT PLATLETS AND PRBC.
[2020-03-07 17:31] LABS: HEMATOCRIT 29.7 % (42.0-54.0); HEMOGLOBIN 10.2 g/dL (13.5-17.5); MCHC 34.3 g/dL (31.0-37.0); MCV 93.1 fL (80.0-100.0); MEAN PLATELET VOLUME 8.2 fL (7.4-10.4); PLATELET COUNT 381 10x3/uL (130-400); RBC 3.19 10x6/uL (4.20-6.10); RDW 13.5 % (11.5-14.5); WBC 21.2 10x3/uL (4.8-10.8)
[2020-03-07 17:37] LABS: APTT 29.2 SECONDS (22.8-39.4); INR 1.21 (0.85-1.17); PROTIME 15.3 SECONDS (11.6-15.0)
--- NOTE | 2020-03-07 18:00 | NUR ---
DR ALICEA NOTIFIED OF BLOOD RESULTS. NO NEW ORDER AT THIS TIME.
[2020-03-07 18:02] LABS: EOSINOPHILS 1 % (0-7); LYMPHOCYTES 20 % (15-50); MONOCYTES 1 % (2-11); NEUTROPHILS 78 % (40-80); PLATELET ESTIMATE NORMAL
--- NOTE | 2020-03-07 18:37 | NUR ---
PT TOLERATING ICE CHIPS WELL. VSS. WILL CONT POC
--- NOTE | 2020-03-07 19:20 | NUR ---
PT RECEIVED WITH EYES CLOSED, OPENS TO VERBAL STIMULI. NO S/S OF DISTRESS. R RADIAL JYOTHI WITH GOOD WAVE FORM. PRICE WITH CLEAR YELLOW URINE. MIDSTERNAL DRESSING C/D/I. TIP DRAIN COMPRESSED AND DRESSING C/D/I. RIGHT IJ WITH PLASMALYTE, KAITY, INSULIN, AND ZINACEF. WILL CONTINUE TO OBSERVE.
[2020-03-07 20:24] LABS: HEMATOCRIT 30.5 % (42.0-54.0); HEMOGLOBIN 10.5 g/dL (13.5-17.5); LYMPHOCYTES 8.3 % (15-50); MCH 31.7 pg (26.0-34.0); MCHC 34.4 g/dL (31.0-37.0); MCV 92.1 fL (80.0-100.0); MEAN PLATELET VOLUME 8.3 fL (7.4-10.4); NEUTROPHILS 83.2 % (40-80); PLATELET COUNT 410 10x3/uL (130-400); RBC 3.31 10x6/uL (4.20-6.10); RDW 13.1 % (11.5-14.5); WBC 20.2 10x3/uL (4.8-10.8)
[2020-03-07 20:37] LABS: ALBUMIN 3.3 g/dL (3.4-5.0); ALKALINE PHOSPHATASE 63 U/L (30-120); BILIRUBIN - TOTAL 0.63 mg/dL (0.2-1.3); CARBON DIOXIDE 26.8 mmol/L (21.0-32.0); CHLORIDE - SERUM 108 mmol/L (98-107); CREATININE - SERUM 0.9 mg/dL (0.6-1.3); POTASSIUM - SERUM 3.9 mmol/L (3.5-5.1); PROTEIN - SERUM 6.4 g/dL (6.4-8.2); SODIUM 141 mmol/L (136-145); eGFR NON AFRICAN AMERICAN > 90 mL/min (90-120)
[2020-03-07 20:39] LABS: ALT (SGPT) 24 U/L (10-68); CALC OSMOLALITY 286 mosm/kg (275-300); GLUCOSE 181 mg/dL (74-106); UREA NITROGEN 14 mg/dL (7-18)
--- NOTE | 2020-03-07 22:00 | NUR ---
PT DRINKING WATER WITHOUT DIFFICULTY. SCHEDULED COLASE AND PRN HYDROCODONE GIVEN. IN ROOM PT VOMITS SHORTLY AFTER MEDICATION ADMINISTRATION. EMISIS LIGHT GREEN IN COLOR. ZOFRAN GIVEN. LEFT UNIT 0275.
[2020-03-08] VITALS (100 sets, daily range): BP systolic 17–123; BP diastolic 26–72
--- NOTE | 2020-03-08 06:40 | NUR ---
BATH GIVEN WITH PRICE CARE. PT UP TO CHAIR. TOLERATED WELL. NO MORE NAUSEA/VOMITING NOTED THIS SHIFT. WILL CONTINUE TO OBSERVE.
[2020-03-08 06:46] LABS: ALKALINE PHOSPHATASE 56 U/L (30-120); ALT (SGPT) 22 U/L (10-68); BILIRUBIN - TOTAL 0.47 mg/dL (0.2-1.3); CALC OSMOLALITY 278 mosm/kg (275-300); CALCIUM 7.3 mg/dL (8.5-10.1); CARBON DIOXIDE 25.1 mmol/L (21.0-32.0); CHLORIDE - SERUM 106 mmol/L (98-107); CREATININE - SERUM 0.7 mg/dL (0.6-1.3); GLUCOSE 157 mg/dL (74-106); POTASSIUM - SERUM 4.1 mmol/L (3.5-5.1); PROTEIN - SERUM 6.1 g/dL (6.4-8.2); SODIUM 138 mmol/L (136-145); UREA NITROGEN 12 mg/dL (7-18); eGFR NON AFRICAN AMERICAN > 90 mL/min (90-120)
[2020-03-08 07:00] LABS: HEMATOCRIT 27.5 % (42.0-54.0); HEMOGLOBIN 9.4 g/dL (13.5-17.5); MCH 31.6 pg (26.0-34.0); MCHC 34.2 g/dL (31.0-37.0); MCV 92.6 fL (80.0-100.0); RBC 2.97 10x6/uL (4.20-6.10); RDW 13.3 % (11.5-14.5); WBC 16.8 10x3/uL (4.8-10.8)
--- NOTE | 2020-03-08 07:00 | NUR ---
REPORT RECEVIED FROM THE OFF GOING RN. SEE ASSESSMENT IN THE PTS FLOW SHEET. PT SITTING OOB IN HIS BEDSIDE CHAIR. VSS. NSR AND OCCASIONALLY PACING. PPM NOTED TO RIGHT UPPER CHEST. MIDSTERNAL DRESSING NOTED. SUBSTERNAL DRESSING C/D/I. CT X2 NOTED TO 20 CM H20 WITH NO AIR LEAK. LEFT TIP DRAIN NOTED AND COMPRESSED. ALL CT AND DRAINS HAVE BLOODY DRAINAGE NOTED. RIGHT RADIAL JYOTHI NOTED WITH A GOOD WAVE FORM. LEFT RADIAL HARVEST SITE DRESSING C/D/I. CAP REFILLS <3 SECONDS. FC NTOED WITH CLEAR, YELLOW URINE. RLE HARVEST SITE DRESSNG C/D/I. SEE IV GTTS IN FLOW SHEET. CALL LIGHT IN REACH. WILL CONT POC.
--- NOTE | 2020-03-08 08:00 | NUR ---
ABG RESULTS NOTED. DR ALICEA AT THE PTS BEDSIDE. OK TO ALE ROE AND LENA.
--- NOTE | 2020-03-08 08:30 | NUR ---
AM MEDS GIVEN WITH NO ISSUES. MEAL TRAY PROVIDED FOR THE PT. CALL LIGHT IN REACH. WILL CONT POC.
[2020-03-08 09:08] LABS: HEMATOCRIT 27.1 % (42.0-54.0); HEMOGLOBIN 9.2 g/dL (13.5-17.5); LYMPHOCYTES 17.1 % (15-50); MCH 31.4 pg (26.0-34.0); MCHC 33.9 g/dL (31.0-37.0); MCV 92.5 fL (80.0-100.0); MEAN PLATELET VOLUME 8.4 fL (7.4-10.4); NEUTROPHILS 75.5 % (40-80); PLATELET COUNT 383 10x3/uL (130-400); RBC 2.93 10x6/uL (4.20-6.10); RDW 13.8 % (11.5-14.5); WBC 17.6 10x3/uL (4.8-10.8)
[2020-03-08 09:22] LABS: ALKALINE PHOSPHATASE 56 U/L (30-120); ALT (SGPT) 22 U/L (10-68); BILIRUBIN - TOTAL 0.48 mg/dL (0.2-1.3); CALC OSMOLALITY 275 mosm/kg (275-300); CALCIUM 7.2 mg/dL (8.5-10.1); CARBON DIOXIDE 26.6 mmol/L (21.0-32.0); CHLORIDE - SERUM 103 mmol/L (98-107); GLUCOSE 170 mg/dL (74-106); POTASSIUM - SERUM 3.9 mmol/L (3.5-5.1); PROTEIN - SERUM 6.3 g/dL (6.4-8.2); SODIUM 136 mmol/L (136-145); UREA NITROGEN 13 mg/dL (7-18)
[2020-03-08 09:23] LABS: CREATININE - SERUM 0.9 mg/dL (0.6-1.3); eGFR NON AFRICAN AMERICAN > 90 mL/min (90-120)
--- NOTE | 2020-03-08 10:00 | NUR ---
Nutrition Follow-up: POD 1 CABG. Nursing reports pt tolerating clears. Diet: Clear Liquid ^ Regular WT: 200.7# (03/08); 185# (03/06) Last BM: 03/02 per chart Labs noted: Glu 170, Ca 7.2, Alb 3.0 Meds noted: Protonix, Colace, Zofran, electrolyte protocol -Rec ADAT to carb consistent diet as medically feasible. -Monitor wt. -RD following.
--- NOTE | 2020-03-08 10:42 | NUR ---
LEATHA STACY PT TOLERATED WELL.
--- NOTE | 2020-03-08 11:22 | NUR ---
PT KAYLYN. PAIN MED ORDERED Q6HPRN. SPOKE WITH DR BRISENO NURSE COURTLINDA. OK TO CHANGE TO Q4HPRN PAIN.
--- NOTE | 2020-03-08 13:26 | OP ---
PATIENT NAME: GALLO ANTHONY MEDICAL RECORD: [id number] :75 LOCATION:[id number] ADMISSION DATE:03/03/20 SURGEON: QUINTEN ALICEA MD DATE OF OPERATION: 03/07/2020 SURGEON: Quinten Alicea MD PROCEDURE PERFORMED: 1. Coronary artery bypass graft times 3 (left internal mammary artery to distal LAD, radial artery from aorta to obtuse marginal, saphenous vein graft from aorta to ramus intermedius), 2 arterial and one venous graft. 2. Left radial artery harvest. PREOPERATIVE DIAGNOSES: Coronary artery disease with multiple percutaneous coronary interventions, myocardial infarction, ischemic cardiomyopathy, COPD, tobacco abuse, and history of lupus. POSTOPERATIVE DIAGNOSES: Coronary artery disease with multiple percutaneous coronary interventions, myocardial infarction, ischemic cardiomyopathy, COPD, tobacco abuse, and history of lupus. ANESTHESIA: General endotracheal. ESTIMATED BLOOD LOSS: Total cardiopulmonary bypass with Cell Saver retransfusion. COMPLICATIONS: None. SPECIMENS: None. CONDITION: Stable. DISPOSITION: CV ICU. OPERATIVE FINDINGS: 1. Transesophageal echocardiography revealed ejection fraction 40% with trace mitral and aortic regurgitation, improved contractility on 3 of dopamine with separation from cardiopulmonary bypass, but slightly more distended left ventricular cavity. 2. Good quality left radial artery harvested open from the left upper extremity. 3. Open bridging incision right lower leg for 1 piece of greater saphenous vein, which was good quality. 4. Good quality left internal mammary artery hyperexpanded left lungs, stents extended into the distal LAD, so the anastomosis of the LAD was the distal vessel 1.5 mm with severe disease. 5. Obtuse marginal likewise had stents extending well down a large vessel. The radial artery was a good conduit and the vessel was 2.0 mm at the site of anastomosis with severe disease, anastomosis and plaque. 6. Right coronary was calcified throughout with stents to the bifurcation and 2 small tandem PDA each less than a millimeter where the only available target, not suitable for bypass. 7. Ramus intermedius 1.5 mm. OPERATIVE INDICATION: Coronary artery disease, myocardial infarction, ischemic OPERATIVE REPORT [id number] GALLO ANTHONY cardiomyopathy, history of multiple percutaneous coronary interventions with stents and restenosis. DESCRIPTION OF PROCEDURE: The patient brought to the operative suite. General anesthesia was obtained, the patient prepped and draped, left radial artery harvest with open harvest. Side branches were clipped. Vessel was ligated proximally and distally and removed perfused with papaverine blood containing solution and hemostasis assured. The stumps were oversewn with Prolene. The arm was closed in 2 layers. Dermabond wrapped carefully and placed in the patient's side. Simultaneously, bridging incisions, right lower extremity for saphenous vein harvest, side branches were clipped. Vessel ligated proximally and distally and removed. Leg was later closed in 2 layers. Median sternotomy incision was made. Subcutaneous tissue was divided by electrocautery. The sternum was divided with a saw. The left hemisternum was elevated. Left pleural cavity was entered. Left internal mammary artery was taken as a pedicle graft. Sternal retractor was placed. Pericardium was opened. Heparin was given. Aorta was cannulated. Dual stage venous cannula was inserted. The internal mammary was clipped distally and made ready for anastomosis. Activated clotting time was appropriately elevated and the patient was placed on cardiopulmonary bypass. Sites for distal anastomoses were selected. The patient immature drifted downwardly to 34.5 and crossclamp was placed. Cardioplegia given antegrade and this repeated at 15 to 20 minute intervals including down the completed vein grafts. Distal anastomoses were performed in standard technique, direct anastomosis from the radial artery to the aorta using 7-0 Prolene and 3.5 mm punch. Crossclamp removed. Proximal and distal anastomotic sites were inspected for bleeding. Single sutures for bleeding. The patient resumed spontaneous rhythm. He has an internal pacemaker fully rewarmed, weaned from cardiopulmonary bypass and was stable. The patient was decannulated. The cannula sites were oversewn. Protamine was given. Thorough irrigation was undertaken. The graft lay appropriately. Hemostasis was assured. A drain was placed in the mediastinum and left pleural cavity. Pericardial fat loosely approximated in the midline. Left chest was evacuated and irrigated. The internal mammary harvest site inspected for bleeding. Sternum was closed with wires. Fascia was closed. Subcutaneous tissue was closed. Skin was closed. Dermabond was placed. The needle and sponge counts were correct and the patient to the ICU in stable condition. TRANSINT:[id number] Voice Confirmation ID: [id number] DOCUMENT ID: [id number] OPERATIVE REPORT [id number] GALLO ANTHONY, QUINTEN Romero MD at 1326 CC: DAHIANA MOE M.D. and TAMELA HARRISON MD [id number] DICTATION DATE: 03/07/20 1507 CARPENTER SUPERVISOR: 03/07/20 193 ADM IN [facility] [address] [id number]
--- NOTE | 2020-03-08 13:49 | NUR ---
PT CONTINUES TO RATE PAIN 10/10 AT INCISION SITE. PAIN MEDICATION GIVEN PER ORDERS. PAIN MANAGEMENT TEACHING PROVIDED AT THIS TIME. CURRENTLY ON PLASMOLYTE AT 30ML/HR, KAITY AT 0.7MCG/KG/MIN. ZINACEF HAS BEEN DISCONTINUED. DIET LEMON POKAGON AND ICE PROVIDED. NO FURTHER NEEDS AT THIS TIME.
--- NOTE | 2020-03-08 17:50 | NUR ---
TRANSFERRED TO BED WITH MODERATE ASSIST. TOLERATED WELL. CONTINUES ON DOPAMINE AND KAITY AT THIS TIME. SEE IV FLOWSHEET FOR RATES. NO FURTHER NEEDS AT THIS TIME.
--- NOTE | 2020-03-08 18:08 | NUR ---
COREG DISCONTINUED PER DR. ALICEA.
--- NOTE | 2020-03-08 19:20 | NUR ---
BEDSIDE REPORT TAKEN AND PATIENT CARE ASSUMED AT THIS TIME.
--- NOTE | 2020-03-08 20:50 | NUR ---
KAITY TITRATED UP TO 0.7 MCG/KG/MIN. TIP DRAIN WITH 110 ML OF BLOODY OUTPUT. BED IS LOCKED AND IN LOW POSITION. CALL LIGHT WITHIN REACH. WILL CONTINUE TO MONITOR.
--- NOTE | 2020-03-08 21:05 | NUR ---
IS NOW AT BEDSIDE. SHE HAS VOICED CONCERNS REGARDING PAIN CONTROL FOR THE PATIENT. UPDATED HER ON WHAT TREATMENTS I HAVE PROVIDED THE PATIENT; SUCH REPOSITIONING AND MEDICATION ADMINISTRATION.
--- NOTE | 2020-03-08 21:50 | NUR ---
PATIENT RESTING WITH EYES CLOSED. NO OBVIOUS S/S OF DISTRESS NOTED. VSS. BED IS LOCKED AND IN LOW POSITION. CALL LIGHT WITHIN REACH.
--- NOTE | 2020-03-08 22:30 | NUR ---
PATIENT HAS BEEN ABLE TO VOID 250 ML INTO URINAL; URINE APPEARS TO BE MARIBEL IN COLOR. THIS IS THE FIRST TIME HE HAS BEEN ABLE TO URINATE SINCE PRICE CATH WAS D/C THIS MORNING.
[2020-03-09] VITALS (62 sets, daily range): BP systolic 74–114; BP diastolic 47–73
[2020-03-09 05:27] LABS: HEMATOCRIT 25.8 % (42.0-54.0); HEMOGLOBIN 8.9 g/dL (13.5-17.5); MCH 32.2 pg (26.0-34.0); MCHC 34.5 g/dL (31.0-37.0); MCV 93.5 fL (80.0-100.0); MEAN PLATELET VOLUME 8.9 fL (7.4-10.4); RBC 2.76 10x6/uL (4.20-6.10); RDW 13.4 % (11.5-14.5); WBC 18.6 10x3/uL (4.8-10.8)
[2020-03-09 05:47] LABS: ALBUMIN 2.9 g/dL (3.4-5.0); ALKALINE PHOSPHATASE 65 U/L (30-120); ALT (SGPT) 22 U/L (10-68); BILIRUBIN - TOTAL 0.47 mg/dL (0.2-1.3); CALC OSMOLALITY 272 mosm/kg (275-300); CALCIUM 7.3 mg/dL (8.5-10.1); CARBON DIOXIDE 26.5 mmol/L (21.0-32.0); CHLORIDE - SERUM 101 mmol/L (98-107); CREATININE - SERUM 0.8 mg/dL (0.6-1.3); GLUCOSE 135 mg/dL (74-106); PROTEIN - SERUM 6.5 g/dL (6.4-8.2); SODIUM 135 mmol/L (136-145); UREA NITROGEN 16 mg/dL (7-18); eGFR NON AFRICAN AMERICAN > 90 mL/min (90-120)
--- NOTE | 2020-03-09 09:31 | NUR ---
Nutrition follow-up: Pt receiving a consistent CHO diet PO intake ~50% of meals Labs reviewed; glucose under good control Wt: 201# RDN following.
--- NOTE | 2020-03-09 10:27 | NUR ---
PT OOB TO CHAIR ASFTER 1UPRBC'S GIVEN AND KAITY TITRATED OFF WELL. BP SITTING 101/65. PO AND IV PAIN MEDS GIVEN. STILL RATES PAIN AT 8 ON SCALE 1 TO 10. ENCOURAGED I.S. PT RESISTING AND STATES THAT HE ALREADY DID IT. WILL CONTINUE TO ENCOURAGE I.S.
--- NOTE | 2020-03-09 12:30 | TEE ---
PATIENT:GALLO ANTHONY MEDICAL RECORD: [id number] LOCATION:[place] [address] AGE OF PATIENT: 44 ADMISSION DATE: 03/03/20 SEX: M REFERRING PHYSICIAN: INTERPRETING PHYSICIAN: TAMELA PERALTA MD TRANSESOPHAGEAL ECHOCARDIOGRAM Date: TONIO CHARGE INDICATIONS: PREMEDICATIONS: PATIENT'S RESPONSE PROCEDURE DOPPLER MEASUREMENTS: LVIT LA PA RA LVOT RVOT Asc. Ao AV Gradient Peak AV Mean AV Area MV Gradient Peak MV Mean MV Area INTERPRETATION: Doppler: 2-D: COLOR FLOW DOPPLER NORMAL SALINE STUDY: MISCELLANOUS: DIAGNOSIS: PLAN: Food Preparation Worker: Bottom Hoop Driver: COMMENTS: DATE OF SERVICE: 03/08/2020 PROCEDURE: Intraoperative transesophageal echo. Pre-CABG shows a normal LV internal dimension. Normal wall thickness, mild global hypokinesis, EF 40% to 45%. Aortic valve is tricuspid with good valve excursion. Trivial AI. Left atrium appears normal. Mitral valve appears normal. Trivial MR. Postoperatively, good improvement. Normal wall thickening with EF close to 50%. Aortic valve with good excursion, trivial AI and mitral TRANSESOPHAGEAL ECHOCARDIOGRAM REPORT [id number] GALLO ANTHONY valve good excursion and trivial MR. TRANSINT:[id number] Voice Confirmation ID: [id number] DOCUMENT ID: [id number] at 1230 CC: [id number] DICTATION DATE: 03/08/20 1534 SHOE SEWING MACHINE OPERATOR AND TENDER: 03/09/20 0136 ADM IN [facility] [address] [place] [address]
--- NOTE | 2020-03-09 14:00 | NUR ---
PT NOT WANTING TO AMB WITH PT. STATES PAIN 10 ON SCALE 1 TO 10. DEMEROL GIVEN APPROX 10 MIN AGO. ENCOURAGED IMPORTANCE. PT DID AMB TO [facility] STATION.
--- NOTE | 2020-03-09 16:19 | NUR ---
BP 74/40. BACK TO BED AND BP STILL MAP BELOW 60. KAITY STARTED AT 0.1MCG/K/MIN. REPORTED TO JASEN.
--- NOTE | 2020-03-09 18:47 | NUR ---
REPORTED TO DR ALICEA THAT PT HAS NOT VOIDED THIS 12 HOUR DAY. REC'D ORDER TO PLACE FC. URINAL PROVIDED. PT ATTEMPTING TO VOID AT PRESENT TIME.
--- NOTE | 2020-03-09 18:56 | NUR ---
PT VOIDS 400CC MARIBEL URINE IN URINAL.
--- NOTE | 2020-03-09 19:20 | NUR ---
REPORT REC'D AND CARE ASSUMED, REC'D PT RESTING IN BED, EYES CLOSED, ON ROOM AIR, AWAKENS TO VERBAL STIMULI, ORIENTED X 4, RIJ DRSG CDI WITH NEOSYNEPHRINE @ 0.3MCG/KG/MIN OR 7.6CC/HR, MIDSTERNAL DRSG CDI, SUBSTERNAL DRSG TO PREVIOUS CT INSERTION SITE, LEFT SUBSTERNAL TIP DRAIN COMPRESSED WITH SEROSANGUINOUS DRAINAGE, LEFT RADIAL HARVEST SITE, INCISION WELL APPROXIMATED, RIGHT LEG HARVEST SITES WELL APPROXIMATED, BILAT TEDS, SCDS OFF, PPP, PT DENIES NEEDS AT THIS TIME, SR UP X 2, CALL LIGHT IN REACH.
--- NOTE | 2020-03-09 21:10 | NUR ---
EVENING MEDS GIVEN, NORCO GIVEN FOR COMPLAINTS OF PAIN, RATING "7" ON 0-10 PAIN SCALE, AT BS, FURTHER NEEDS DENIED
[2020-03-10] VITALS (92 sets, daily range): BP systolic 86–120; BP diastolic 50–70
--- NOTE | 2020-03-10 | NUR ---
ROUTINE MEDS GIVEN ORDERED, PT CONTINUES TO RATE PAIN "7/10", FRESH ICE WATER PROVIDED ON REQUEST, VSS, ATTEMPTING TO WEAN KAITY TOLERATED.
--- NOTE | 2020-03-10 02:00 | NUR ---
NO CHANGES IN STATUS
--- NOTE | 2020-03-10 03:30 | NUR ---
REASSESSMENT COMPLETED, PT RESTING IN BED, WATCHING TV, DENIES NEEDS, VSS, WEANING NEOSYNEPHRINE TOLERATED, WILL CONT TO MONITOR FOR CHANGES.
--- NOTE | 2020-03-10 05:00 | NUR ---
RADIOLOGY @ BS FOR AM CXR
[2020-03-10 06:39] LABS: HEMATOCRIT 25.1 % (42.0-54.0); HEMOGLOBIN 8.3 g/dL (13.5-17.5); MCH 30.3 pg (26.0-34.0); MCHC 33.1 g/dL (31.0-37.0); MCV 91.6 fL (80.0-100.0); MEAN PLATELET VOLUME 8.9 fL (7.4-10.4); RBC 2.74 10x6/uL (4.20-6.10); RDW 14.3 % (11.5-14.5); WBC 12.7 10x3/uL (4.8-10.8)
[2020-03-10 06:59] LABS: ALBUMIN 2.6 g/dL (3.4-5.0); ALKALINE PHOSPHATASE 78 U/L (30-120); ALT (SGPT) 17 U/L (10-68); BILIRUBIN - TOTAL 0.57 mg/dL (0.2-1.3); CALC OSMOLALITY 275 mosm/kg (275-300); CALCIUM 7.4 mg/dL (8.5-10.1); CARBON DIOXIDE 25.7 mmol/L (21.0-32.0); CHLORIDE - SERUM 102 mmol/L (98-107); CREATININE - SERUM 0.9 mg/dL (0.6-1.3); GLUCOSE 117 mg/dL (74-106); POTASSIUM - SERUM 3.9 mmol/L (3.5-5.1); PROTEIN - SERUM 6.2 g/dL (6.4-8.2); SODIUM 136 mmol/L (136-145); eGFR NON AFRICAN AMERICAN > 90 mL/min (90-120)
[2020-03-10 07:05] LABS: UREA NITROGEN 21 mg/dL (7-18)
--- NOTE | 2020-03-10 18:31 | NUR ---
0700-RECIEVED UP I CHAIR-NEOSYNEPHRINE INFUSING AT 0.2-PT REQUESTING PAIN MEDICINE -STATES 04/02- 799- AT BEDSIDE -ASSISTED WITH AM TRAY 0840-PHYSICAL THERAPY AT BEDSIDE-PT REQUESTED TO USE WALKER-DETERED PT FROM SAME-AMBULATED WELL WITH OUT WALKER ON ROOM AIR -ACCP. BY PHYSICAL THERAPY 1030-UP IN CHAIR- REMAINS WITH PT- 1050-DR ALICEA AT BEDSIDE DIRECTED TO DECREASE KAITY TO 0.1 MCG-SAME DONE-STATED SYSTOLIC IN 80-ACCEPTIBLE [id number]-INFORMED SAME OF PT STRONG PAIN MEDICATION USAGE-NO CHANGES MADE TO PAIN MEDICATION REGIMEN 1330-AMBULATED WELL WITH PHYSICAL THERAPY 1430-PT RETURNED TO BED-CONTINUE TO FOLLOW EMAR PAIN MANAGEMENT 1630-ASSISTED WITH DINNER TRAY 1730-NO CHANGES AT THIS TIME SR ON MONITOR -NOTED RARE PACED BEATS FROM PERMANENT PACER
--- NOTE | 2020-03-10 23:52 | NUR ---
1900 pt assessment completed at this time, no changes noted from nurse report, pt aaox4, pt c/o pain to chest and upper back, pt states that has been going on since the surgery, pt's spouse is at the bedside, pt was imfored that the nurse would birng him his pain medicine as soon as possible. 2100 pt resting in bed playing on phone no distress noted, vss 2300 pt reassessment completed at this time, no changes noted from previous exam, vss
[2020-03-11] VITALS (45 sets, daily range): BP systolic 82–125; BP diastolic 44–88
--- NOTE | 2020-03-11 01:50 | NUR ---
CALLED DR ALICEA ABOUT B/P TRENDING DOWN, ORDERS TO ADJUST KAITY SOME IF NEEDED
--- NOTE | 2020-03-11 03:00 | NUR ---
PT REASSESSMENT COMPLETED AT THIS TIME, NO CHANGES NOTED FROM PREVIOUS EXAM, VSS
--- NOTE | 2020-03-11 05:41 | NUR ---
PT REQUESTING SOMETHING FOR PAIN, PT WAS INFORMED THAT IT WAS NOT TIME FOR ANY ADDITIONAL PAIN MEDS
[2020-03-11 06:23] LABS: MCH 30.3 pg (26.0-34.0); MCHC 33.3 g/dL (31.0-37.0); MCV 90.9 fL (80.0-100.0); MEAN PLATELET VOLUME 8.7 fL (7.4-10.4); RBC 2.64 10x6/uL (4.20-6.10); RDW 13.9 % (11.5-14.5); WBC 9.7 10x3/uL (4.8-10.8)
--- NOTE | 2020-03-11 06:51 | NUR ---
PT REQUESTED A BATH BASIN AND SOME TOWELS AND WASH CLOTHES TO CLEAN UP THIS MORNING, PT WAS PROVIDED WITH CLEAN LINENS AND SOAP BASIN
[2020-03-11 07:00] LABS: ALBUMIN 2.4 g/dL (3.4-5.0); ALKALINE PHOSPHATASE 103 U/L (30-120); ALT (SGPT) 16 U/L (10-68); BILIRUBIN - TOTAL 0.31 mg/dL (0.2-1.3); CALC OSMOLALITY 274 mosm/kg (275-300); CALCIUM 8.1 mg/dL (8.5-10.1); CARBON DIOXIDE 25.3 mmol/L (21.0-32.0); CHLORIDE - SERUM 101 mmol/L (98-107); CREATININE - SERUM 0.9 mg/dL (0.6-1.3); GLUCOSE 149 mg/dL (74-106); POTASSIUM - SERUM 3.7 mmol/L (3.5-5.1); PROTEIN - SERUM 6.1 g/dL (6.4-8.2); SODIUM 135 mmol/L (136-145); UREA NITROGEN 18 mg/dL (7-18); eGFR NON AFRICAN AMERICAN > 90 mL/min (90-120)
--- NOTE | 2020-03-11 15:11 | NUR ---
0700-RECIEVED PER FLOW SHEET- AT BEDSIDE-ASSISTED PT WITH AM BATH -HEBICLENS USED-PT UP IN CHAIR 0830-AMBULATING IN ROOM AD CURTIS-ENCOURAGED PT TO USE PO ANALGESIC-FOR PAIN MANAGEMENT 1130 DR ALICEA AT BEDSIDE- ASSITED PT TO BED-BLKE DRAIN AND PACER WIRES REMOVED BY DR ALICEA-PT INSTRUCTED FOR BEDREST X20MIN 1300-R IJ CORDIS DISCONTINUED ORDERED PER PROTOCOL 1530-PT AWAKE ON PORTABLE TELEMETRY-SR AMBULATING AT CURTIS-RT AT BEDSIDE-RX DONE
--- NOTE | 2020-03-11 19:00 | NUR ---
PT ASSESSMENT COMEPLTED AT THIS TIME, NO CHANGES NOTED FROM NURSE REPORT, PT IS AAOX4 RESTING IN THE BED WATCHING TV, PT DENIES COMPLAINTS OR DISTRESS AT THIS TIME, VSS, WILL MONITOR FOR CHANGES
--- NOTE | 2020-03-11 21:00 | NUR ---
PT GIVEN MEDS AT THIS TIME, PT RESTING IN BED WATCHING TV, NO DISTRESS NOTED, WILL MONITOR FOR CHANGES
--- NOTE | 2020-03-11 22:55 | NUR ---
PT C/O PAIN, DR ALICEA CALLED AND ORDERED FOR A ONE TIME DOSE OF NORCO 5MG
--- NOTE | 2020-03-12 01:00 | NUR ---
pt resting with eyes closed reps even and nonlabored
[2020-03-12 03:00] VITALS: BP 96/57
--- NOTE | 2020-03-12 03:00 | NUR ---
PT REASSESSMENT COMPLETED AT THIS TIME NO CHANGES NOTED FROM PREVIOUS EXAM, VSS
--- NOTE | 2020-03-12 05:37 | NUR ---
PT'S SPOUSE ASKED ABOUT PAIN MEDICINE, PT WAS ADVISED THAT IT WAS NOT TIME FOR ANOTHER PAIN PILL AT THIS TIME
[2020-03-12 06:08] LABS: HEMATOCRIT 24.8 % (42.0-54.0); HEMOGLOBIN 8.4 g/dL (13.5-17.5); MCH 30.8 pg (26.0-34.0); MCHC 33.9 g/dL (31.0-37.0); MCV 90.8 fL (80.0-100.0); MEAN PLATELET VOLUME 8.4 fL (7.4-10.4); RBC 2.73 10x6/uL (4.20-6.10); RDW 13.7 % (11.5-14.5); WBC 9.5 10x3/uL (4.8-10.8)
[2020-03-12 06:48] LABS: ALBUMIN 2.5 g/dL (3.4-5.0); ALKALINE PHOSPHATASE 132 U/L (30-120); CALCIUM 8.3 mg/dL (8.5-10.1); CARBON DIOXIDE 25.9 mmol/L (21.0-32.0); CHLORIDE - SERUM 102 mmol/L (98-107); CREATININE - SERUM 0.7 mg/dL (0.6-1.3); GLUCOSE 165 mg/dL (74-106); POTASSIUM - SERUM 3.8 mmol/L (3.5-5.1); PROTEIN - SERUM 6.5 g/dL (6.4-8.2); SODIUM 135 mmol/L (136-145); eGFR NON AFRICAN AMERICAN > 90 mL/min (90-120)
[2020-03-12 06:51] LABS: ALT (SGPT) 21 U/L (10-68); CALC OSMOLALITY 272 mosm/kg (275-300); UREA NITROGEN 9 mg/dL (7-18)
[2020-03-12 07:00] VITALS: BP 112/65
--- NOTE | 2020-03-12 07:20 | NUR ---
WALKING IN HALLWAY WITH .
--- NOTE | 2020-03-12 07:50 | NUR ---
DR. ALICEA ON UNIT. TALKED WITH HIM ABOUT PAIN MEDS FOR THE PATIENT. DR. ALICEA INSTRUCTS TOO MUCH PAIN MEDICATION WOULD LIMIT HIS MOVEMENT AND DEEP BREATHING CAUSING COMPLICATIONS. DR. ALICEA REPORT TO THAT PATIENT HAS FLUID IN LEFT LUNG ON EXAM THIS MORNING. HAS ORDERED A CHEST XRAY.
--- NOTE | 2020-03-12 08:05 | NUR ---
PAIN MED FOR C/O 04/02 PAIN LEVEL AND 0900 MEDS TAKEN TO BEDSIDE. PATIENT IS ANGRY AND UNCOOPERATIVE. REFUSES PAIN MEDS AND STATES HE DOESN'T HAVE ANY PAIN. ALSO REFUSED ROUTINE MEDS. RN INSTRUCTED PATIENT ON PURPOSE OF EACH MEDICATION AND RISKS FOR BLOOD CLOTS AND RECURRENT AR. PATIENT STATES "I'M LEAVING THIS M.....F....ING PLACE". LOOKS AT AND STATES "I TOLD YOU I WAS'NT GOING TO STAY HERE ANOTHER DAY". PATIENT REFUSALS REPORT TO EJ MITCHELL. HE SPEAKS WITH PATIENT, REINFORCING THE RISK TOLD BY THIS NURSE. PATIENT AGREES TO TAKE MEDS.
--- NOTE | 2020-03-12 08:30 | NUR ---
PATIENT REFUSED BREAKFAST TRAY. KICKS OVERBED TRAY TABLE WITH MEAL TRAY ON IT AWAY FROM THE CHAIR WHERE HE IS SEATED.
--- NOTE | 2020-03-12 10:01 | NUR ---
GEOTHERMAL ELECTRICAL ENGINEER HERE TO OBTAIN DECUBITUS XRAY OF CHEST. PATIENT IS RUDE AND UNCOOPERATIVE WITH TECHS. EVENTUALLY COOPERATES WITH TECHS AND XRAY IS OBTAINED. PRELIMINARY REVIEW SHOWS FLUID IN LEFT LUNG.
[2020-03-12 10:13] VITALS: BP 92/47
--- NOTE | 2020-03-12 10:15 | NUR ---
NUTRITION F/U PT WITH VISITOR AT BEDSIDE. PT HAS BEEN TOLERATING ADA DIET WITH ~50% INTAKE RECENT MEALS. FOR UNKNOWN REASON REFUSED BREAKFAST THIS AM. WILL CONTINUE TO PROVIDE CURRENT DIET, MONITOR PO INTAKE. RD FOLLOWING
--- NOTE | 2020-03-12 10:25 | NUR ---
AND PATIENT INSTRUCTED THAT VISITATION HOURS MUST BE OBSERVED. PATIENT AGAIN BECOMES ANGRY, ASKS FOR SHOES AND BEGINS TO PULL OFF ELECTRODE WIRES. STATES "I'M LEAVING HERE". STATES "HE HAS BEEN HERE 2 WEEKS WITHOUT SEEING HIS KIDS". RN ENCOURAGES PATIENT TO STAY, DISCUSSES RISK OF LEAVING AMA. DISCUSSED USING FACETIME TO VISIT WITH CHILDREN. RN REQUESTS THE ASSISTANCE OF EJ MITCHELL, TO GAIN PATIENT'S COOPERATION. PATIENT EVENTUALLY AGREES TO STAY. IS ALLOWED TO REMAIN IN THE ROOM AT THIS TIME TO PREVENT PATIENT AMA. INCENTIVE SPIROMETRY ENCOURAGED - PULLS 1500ML. DEEP BREATH AND COUGH ENCOURAGED. SPUTUM CUP AT BEDSIDE AND INSTRUCTIONS GIVEN TO COLLECT SPUTUM SPECIMEN TO R/O INFECTION.
--- NOTE | 2020-03-12 11:30 | NUR ---
DR. MAI HERE. ORDER FOR MUCINEX DM 600MG BID ORDERED.
--- NOTE | 2020-03-12 12:01 | NUR ---
LYING IN BED WITH COVERS PULLED OVER HIS HEAD. AROUSED FOR FINGERSTICK GLUCOSE, RESULT 110. NO INSULIN INDICATED. REFUSED LUNCH AT THIS TIME. TRAY LEFT AT BEDSIDE. IN ROOM.
--- NOTE | 2020-03-12 12:30 | NUR ---
NORCO 5MG 1 TAB GIVEN PO FOR C/O 6/10 PAIN FROM CHEST INCISION.
--- NOTE | 2020-03-12 14:30 | NUR ---
BEDSIDE ULTRASOUND OF LEFT CHEST DONE. DR. ALICEA HERE. NO THORACENTESIS NEEDED. PATIENT TO WALK WITH AROUND UNIT AND WILL DISCHARGE HOME IF NO COMPLICATIONS.
[2020-03-12] MEDS ORDERED: LASIX40 MG PO (15:07)
[2020-03-12] MEDS ORDERED: K-DUR20 MEQ PO (15:08)
--- NOTE | 2020-03-12 17:00 | NUR ---
GABRIEL Alicea FOR [facility] PAGED R/T DISCHARGE ORDER FOR PATIENT. STATES SHE WAS NOT AWARE OF THIS DISCHARGE.
--- NOTE | 2020-03-12 17:35 | NUR ---
FINGERSTICK BLOOD GLUCOSE 169. 8 UNITS HUMOLOG GIVEN SQ AND SUPPER TRAY SERVED. POOR APPETITE. APPROXIMATELY 20% EATEN. AWAITING DISCHARGE ORDER COMPLETION BY GABRIEL VELASQUEZ.
[2020-03-12] MEDS ORDERED: IPRAT-ALBUT 0.5-3 ML INH (17:51)
--- NOTE | 2020-03-12 18:20 | NUR ---
SPOKE WITH [facility] SELLERS WITH DR. GUADARRAMA REGARDING PAIN MEDICATION. WILL ORDER TRAMADOL. PT WILL CALL DR. ALICEA'S OFFICE OR HIS PRIMARY CARE PROVIDER FOR STRONGER PAIN MEDICATION.
--- NOTE | 2020-03-12 18:37 | MORECARE ---
CASE MANAGEMENT DISCHARGE SUMMARY PATIENT: GALLO ANTHONY UNIT: [id number] ADM DATE: 03/03/20 AGE: 44 : 75 SEX: M ROOM/BED: D.[facility] AUTHOR: LETICIADOC PHYSICIAN: REFERRING PHYSICIAN: TAMELA HARRISON MD DATE OF SERVICE: 03/12/20 Discharge Plan Patient Name: GALLO ANTHONY Facility: [facility]:[place] : 1975 Planned Disposition: Home with Home Health Anticipated Discharge Date: Discharge Date: Expected LOS: Initial Reviewer: [email or web address] Initial Review Date: 03/02/2020 Generated: 03/12/20 7:36 pm DCP- Discharge Planning Updated by [email or web address]: Ashlyn Kline on 03/06/20 1:[address] Patient Name: GALLO ANTHONY Admission Status: ER Accout number: [id number] Admission Date: 03-03-2020 : 1975 Admission Diagnosis: Attending: KALPANA Current LOS: 3 Anticipated DC Date: Planned Disposition: Home with Home Health Primary Insurance: [employer] ADV Discharge Planning Comments: CM met with patient to complete initial dc planning assessment. CM educated patient on the CM role and verbal consent given by patient to complete assessment. CM verified patient's address, phone number, and emergency contact phone numbers. Patient lives at home with his family. His Cristal ([phone]) is at bedside. At discharge patient plans to return home and feels this is a safe discharge. 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 Patient states he will agree to [facility] if needed. ROJELIO signed. Patient denies other known discharge needs at this time. Transportation provider at discharge will be Cristal. CM will continue to follow and will assist as needed with dc plans/needs. Accounting Instructor: Ashlyn Kline DCPIA - Discharge Planning Initial Assessment Updated by [email or web address]: Ashlyn Kline on 03/06/20 1:57 pm * Is the patient Alert and Oriented? Yes * How many steps to enter\exit or inside your home? 0/0 * PCP NONE * Pharmacy [facility] * Preadmission Environment Home with Family * ADLs Independent * Equipment None * List name and contact numbers for known caregivers / representatives who currently or will assist patient after discharge: CRISTAL [phone] * Verbal permission to speak to the caregivers and representatives has been obtained from the patient. Yes * Community resources currently utilized None * Additional services required to return to the preadmission environment? Yes * Can the patient safely return to the preadmission environment? Yes * Has this patient been hospitalized within the prior 30 days at any hospital? No External Providers External Provider: Noy Carpio Contact Date: Service Request Date: Service Type: Resolution: Reviewer: Comments: Coverage Notice Reviewer: [email or web address] Thierry Kline Notice Issued Date-Time: 03/02/2020 16:00 Notice Type: Medicare Outpatient Observation Notice Notice Delivered To: Family Member Relationship to Patient: Spouse Contracts Advisor Name: estela Delivery Method: HAND - Hand Delivered Pilar Days: Prior Verbal Notification: Recipient Understood Notice: Yes Recipient Signature: Yes Med Rec Note Co-signed by Attending: Coverage Notice Comment: florentin delivered. signed by estela. Reviewer: [email or web address] - Ashlyn Kline Notice Issued Date-Time: 03/06/2020 14:01 Notice Type: Patient Choice Letter Notice Delivered To: Patient Relationship to Patient: Contracts Advisor Name: Delivery Method: HAND - Hand Delivered Pilar Days: Prior Verbal Notification: Recipient Understood Notice: Yes Recipient Signature: Yes Med Rec Note Co-signed by Attending: Coverage Notice Comment: marina steve Last DP export: 03/06/20 1:03 p Patient Name: GALLO ANTHONY Page [id number] at 1837 All edits/amendments must be made on the electronic document DICTATION DATE: 03/12/201835 CUSTOM SHOEMAKER: MARISOL 03/12/201835 RPT#: [id number] DC DATE: STATUS: ADM IN [facility] [address] [place] [address] END OF REPORT
[2020-03-12] MEDS ORDERED: ULTRAM50 MG PO (18:38)
--- NOTE | 2020-03-13 20:06 | MORECARE ---
CASE MANAGEMENT DISCHARGE SUMMARY PATIENT: GALLO ANTHONY UNIT: [id number] ADM DATE: 03/03/20 AGE: 44 : 75 SEX: M ROOM/BED: D[facility] AUTHOR: LETICIA,DOC PHYSICIAN: REFERRING PHYSICIAN: TAMELA HARRISON MD DATE OF SERVICE: 03/13/20 Discharge Plan Patient Name: GALLO ANTHONY Facility: [facility]:[place] : 1975 Planned Disposition: Home with Home Health Anticipated Discharge Date: Discharge Date: 03/12/2020 Expected LOS: Initial Reviewer: [email or web address] Initial Review Date: 03/02/2020 Generated: 03/13/20 9:05 pm Comments DCP- Discharge Planning Updated by [email or web address]: Guerline Cho on 03/13/20 7:[address] LATE ENTRY 03/12/20 CM notified that patient needed nebulizer and duonebs prior to discharge. CM spoke with and ROJELIO signed. CM notified [facility] and faxed records. Contacted [facility] and Nebulizer was delivered quickly since patient was eager to go home. D/C IMM signed. DCP- Discharge Planning Updated by [id number]: Ashlyn Kline on 03/06/20 1:[address] Patient Name: GALLO ANTHONY Admission Status: ER Accout number: [id number] Admission Date: 03-03-2020 : 1975 Admission Diagnosis: Attending: KALPANA Current LOS: 3 Anticipated DC Date: Planned Disposition: Home with Home Health Primary Insurance: [employer] ADV Discharge Planning Comments: CM met with patient to complete initial dc planning assessment. CM educated patient on the CM role and verbal consent given by patient to complete assessment. CM verified patient's address, phone number, and emergency contact phone numbers. Patient lives at home with his family. His Cristal ([phone]) is at bedside. At discharge patient plans to return home and feels this is a safe discharge. 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 Patient states he will agree to [facility] if needed. ROJELIO signed. Patient denies other known discharge needs at this time. Transportation provider at discharge will be Cristal. CM will continue to follow and will assist as needed with dc plans/needs. Senior Software Analyst: Ashlyn Kline DCPIA - Discharge Planning Initial Assessment Updated by [email or web address]: Ashlyn Kline on 03/06/20 1:57 pm * Is the patient Alert and Oriented? Yes * How many steps to enter\exit or inside your home? 0/0 * PCP NONE * Pharmacy [facility] * Preadmission Environment Home with Family * ADLs Independent * Equipment None * List name and contact numbers for known caregivers / representatives who currently or will assist patient after discharge: CRISTAL [phone] * Verbal permission to speak to the caregivers and representatives has been obtained from the patient. Yes * Community resources currently utilized None * Additional services required to return to the preadmission environment? Yes * Can the patient safely return to the preadmission environment? Yes * Has this patient been hospitalized within the prior 30 days at any hospital? No Coverage Notice Reviewer: [id number] Thierry Kline Notice Issued Date-Time: 03/02/2020 16:00 Notice Type: Medicare Outpatient Observation Notice Notice Delivered To: Family Member Relationship to Patient: Spouse Senior Software Engineer Name: estela Delivery Method: HAND - Hand Delivered Pilar Days: Prior Verbal Notification: Recipient Understood Notice: Yes Recipient Signature: Yes Med Rec Note Co-signed by Attending: Coverage Notice Comment: florentin delivered. signed by estela. Reviewer: [email or web address] Thierry Kline Notice Issued Date-Time: 03/06/2020 14:01 Notice Type: Patient Choice Letter Notice Delivered To: Patient Relationship to Patient: Senior Software Engineer Name: Delivery Method: HAND - Hand Delivered Pilar Days: Prior Verbal Notification: Recipient Understood Notice: Yes Recipient Signature: Yes Med Rec Note Co-signed by Attending: Coverage Notice Comment: marina steve Last DP export: 03/12/20 5:37 p Patient Name: GALLO ANTHONY Page [id number] at 2006 All edits/amendments must be made on the electronic document DICTATION DATE: 03/13/202005 CHASER TAR: MARISOL 03/13/202005 RPT#: [id number] DC DATE:03/12/20 STATUS: DIS IN [facility] [address] [place] [address] END OF REPORT
--- NOTE | 2020-03-13 20:13 | MORECARE ---
CASE MANAGEMENT DISCHARGE SUMMARY PATIENT: GALLO ANTHONY UNIT: [id number] ADM DATE: 03/03/20 AGE: 44 : 75 SEX: M ROOM/BED: D[facility] AUTHOR: LETICIA,DOC PHYSICIAN: REFERRING PHYSICIAN: ATMELA HARRISON MD DATE OF SERVICE: 03/13/20 Discharge Plan Patient Name: GALLO ANTHONY Facility: [facility]:[place] : 1975 Planned Disposition: Home Anticipated Discharge Date: 03/12/20 Discharge Date: 03/12/2020 Expected LOS: 9 Initial Reviewer: [email or web address] Initial Review Date: 03/02/2020 Generated: 03/13/20 9:12 pm Comments DCP- Discharge Planning Updated by [email or web address]: Guerline Cho on 03/13/20 7:[address] LATE ENTRY 03/12/20 CM notified that patient needed nebulizer and duonebs prior to discharge. CM spoke with and ROJELIO signed. CM notified [facility] and faxed records. Contacted [facility] and Nebulizer was delivered quickly since patient was eager to go home. D/C IMM signed. DCP- Discharge Planning Updated by [email or web address]: Ashlyn Kline on 03/06/20 1:[address] Patient Name: GALLO ANTHONY Admission Status: ER Accout number: [id number] Admission Date: 03-03-2020 : 1975 Admission Diagnosis: Attending: KALPANA Current LOS: 3 Anticipated DC Date: Planned Disposition: Home with Home Health Primary Insurance: [employer] ADV Discharge Planning Comments: CM met with patient to complete initial dc planning assessment. CM educated patient on the CM role and verbal consent given by patient to complete assessment. CM verified patient's address, phone number, and emergency contact phone numbers. Patient lives at home with his family. His Meron ([phone]) is at bedside. At discharge patient plans to return home and feels this is a safe discharge. 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 Patient states he will agree to [facility] if needed. ROJELIO signed. Patient denies other known discharge needs at this time. Transportation provider at discharge will be Meron. CM will continue to follow and will assist as needed with dc plans/needs. Microfiche Duplicator: Ashlyn Kline DCPIA - Discharge Planning Initial Assessment Updated by [email or web address]: Ashlyn Kline on 03/06/20 1:57 pm * Is the patient Alert and Oriented? Yes * How many steps to enter\exit or inside your home? 0/0 * PCP NONE * Pharmacy [facility] * Preadmission Environment Home with Family * ADLs Independent * Equipment None * List name and contact numbers for known caregivers / representatives who currently or will assist patient after discharge: MERON [phone] * Verbal permission to speak to the caregivers and representatives has been obtained from the patient. Yes * Community resources currently utilized None * Additional services required to return to the preadmission environment? Yes * Can the patient safely return to the preadmission environment? Yes * Has this patient been hospitalized within the prior 30 days at any hospital? No Coverage Notice Reviewer: [id number] Thierry Kline Notice Issued Date-Time: 03/02/2020 16:00 Notice Type: Medicare Outpatient Observation Notice Notice Delivered To: Family Member Relationship to Patient: Spouse Real Estate Lawyer Name: estela Delivery Method: HAND - Hand Delivered Pilar Days: Prior Verbal Notification: Recipient Understood Notice: Yes Recipient Signature: Yes Med Rec Note Co-signed by Attending: Coverage Notice Comment: florentin sultana. signed by estela. Reviewer: [id number] Thierry Kline Notice Issued Date-Time: 03/06/2020 14:01 Notice Type: Patient Choice Letter Notice Delivered To: Patient Relationship to Patient: Real Estate Lawyer Name: Delivery Method: HAND - Hand Delivered Pilar Days: Prior Verbal Notification: Recipient Understood Notice: Yes Recipient Signature: Yes Med Rec Note Co-signed by Attending: Coverage Notice Comment: marina Reviewer: [id number] Thierry Cho Notice Issued Date-Time: 03/12/2020 12:55 Notice Type: IM Discharge Notice Notice Delivered To: Patient Relationship to Patient: Real Estate Lawyer Name: Delivery Method: HAND - Hand Delivered Pilar Days: Prior Verbal Notification: Recipient Understood Notice: Yes Recipient Signature: Yes Med Rec Note Co-signed by Attending: Coverage Notice Comment: Reviewer: [email or web address] Thierry Cho Notice Issued Date-Time: 03/12/2020 18:00 Notice Type: Patient Choice Letter Notice Delivered To: Family Member Relationship to Patient: Spouse Real Estate Lawyer Name: Estela Delivery Method: HAND - Hand Delivered Pilar Days: Prior Verbal Notification: Recipient Understood Notice: Yes Recipient Signature: Yes Med Rec Note Co-signed by Attending: Coverage Notice Comment: Shawn for DME Last DP export: 03/13/20 7:06 p Patient Name: GALLO ANTHONY Page [id number] at 2013 All edits/amendments must be made on the electronic document DICTATION DATE: 03/13/202011 HIDE DROPPER: MARISOL 03/13/202011 RPT#: [id number] DC DATE:03/12/20 STATUS: DIS IN [facility] [address] [place] [address] END OF REPORT
== END 2020-03-12 18:30 | disposition home health service (06) | DRG 287 ==
LOC: D.ER → OBSVTIME 13:12 → D.M2 13:12 → D.ICU 03-03 12:13 → D.M2 03-03 12:13 → D.CVICU 03-03 12:13 → D.ICU 03-06 19:24 → D.CVICU 03-07 12:39 → D.ICU 03-07 12:49 → D.CVICU 03-07 12:50
PROVIDERS: Family Medicine; Internal Medicine Cardiovascular Disease; Thoracic Surgery (Cardiothoracic Vascular Surgery); ADMIT Family Medicine; ATTEND Family Medicine
PROC: B2181ZZ Fluoroscopy of Left Internal Mammary Bypass Graft using Low Osmolar Contrast (ICD-10-PCS; 2020-03-03)
PROC: B2151ZZ Fluoroscopy of Left Heart using Low Osmolar Contrast (ICD-10-PCS; 2020-03-03)
PROC: 4A023N7 Measurement of Cardiac Sampling and Pressure, Left Heart, Percutaneous Approach (ICD-10-PCS; 2020-03-03)
PROC: B2111ZZ Fluoroscopy of Multiple Coronary Arteries using Low Osmolar Contrast (ICD-10-PCS; principal; 2020-03-03 08:30)
DX: I25.110 Atherosclerotic heart disease of native coronary artery with unstable angina pectoris (principal); E87.1 Hypo-osmolality and hyponatremia; K50.90 Crohn's disease, unspecified, without complications; J90 Pleural effusion, not elsewhere classified; D62 Acute posthemorrhagic anemia; I25.5 Ischemic cardiomyopathy; J44.9 Chronic obstructive pulmonary disease, unspecified; E11.65 Type 2 diabetes mellitus with hyperglycemia; D47.3 Essential (hemorrhagic) thrombocythemia; D72.829 Elevated white blood cell count, unspecified; F41.9 Anxiety disorder, unspecified; M32.9 Systemic lupus erythematosus, unspecified; Z86.711 Personal history of pulmonary embolism; Z95.0 Presence of cardiac pacemaker; F17.200 Nicotine dependence, unspecified, uncomplicated

== ENCOUNTER → 2020-04-03 13:48 | Outpatient (CLI) | payer MEDICARE, MEDICAID ==
[2020-03-05 10:51] VITALS: BMI 23.7
[~2020-04-03 13:48] MED LIST changes: +IPRAT-ALBUT 0.5-3 ML INH; +K-DUR20 MEQ PO; +LASIX40 MG PO; +ULTRAM50 MG PO
[2020-04-03 14:08] LABS: BASOPHILS 0.5 % (0-2); HEMATOCRIT 34.8 % (42.0-54.0); HEMOGLOBIN 11.2 g/dL (13.5-17.5); IMMATURE GRANULOCYTES 0.3 % (0-5); LYMPHOCYTES 36.8 % (15-50); MCH 28.7 pg (26.0-34.0); MCHC 32.2 g/dL (31.0-37.0); MCV 89.2 fL (80.0-100.0); MONOCYTES 9.2 % (2-11); NEUTROPHILS 46.2 % (40-80); RDW 14.7 % (11.5-14.5); WBC 8.8 10x3/uL (4.8-10.8)
[2020-04-03 14:09] LABS: PLATELET COUNT 621 10x3/uL (130-400)
[2020-04-03 14:30] LABS: CALC OSMOLALITY 273 mosm/kg (275-300); CALCIUM 9.7 mg/dL (8.5-10.1); CARBON DIOXIDE 29.6 mmol/L (21.0-32.0); CHLORIDE - SERUM 98 mmol/L (98-107); POTASSIUM - SERUM 4.5 mmol/L (3.5-5.1); SODIUM 134 mmol/L (136-145); UREA NITROGEN 7 mg/dL (7-18); eGFR NON AFRICAN AMERICAN 86 mL/min (90-120)
[2020-04-03 14:38] LABS: GLUCOSE 249 mg/dL (74-106)
== END | disposition home or self-care (01) ==
LOC: D.LAB 13:48
PROVIDERS: ATTEND Thoracic Surgery (Cardiothoracic Vascular Surgery)
DX: Z95.1 Presence of aortocoronary bypass graft (principal)